=== PATIENT | male | born 1955 | race Caucasian/White ===

== ENCOUNTER 2020-01-07 15:12 | IRF | payer OTHER, BC, SELFPAY ==
--- NOTE | 2020-01-07 15:37 | PC.NURSE ---
This patient, Jose Mendoza, was admitted to [facility] Room 226-01. Patient/family oriented to hospital policies and general routines including ID bracelet, bed and alarms, visiting hours, pain management, procedures, bathroom and other care routines, personal items, smoking policy, room service/diet, and visiting hours. Valuables list has been completed. Information on how to activate the Rapid Response Team has been discussed. Patient/Family are encouraged to report perceived risks to care and to ask questions if they do not understand what they are told or what they should do.
[2020-01-07 16:00] VITALS: BP 111/86; PULSE 81; RESP 20; TEMP 37.1; O2SAT 99; BMI 25.7
[2020-01-07 17:18] LABS: Glucose Point of Care 175 (65-105)
[2020-01-07] MEDS: CYCLOBENZAPRINE HCL 5 MG TABLET PO (17:58)
[2020-01-07] MEDS: SENNA/DOCUSATE SODIUM TABLET 2 TAB BY MOUTH (18:14)
[2020-01-07] MEDS: LIPASE/AMYLASE/PROTEASE 12,000 UNITS CAP 2 CAP PO (18:15)
[2020-01-07] MEDS: INSULIN ASPART (*BKC) 100 UNITS/ML 8 UNITS SUB-Q (18:16)
[2020-01-07] MEDS: ATORVASTATIN 10 MG TABLET PO (21:00)
[2020-01-07] MEDS: INSULIN GLARGINE (*BKC) 100 UNITS/ML 16 UNITS SUB-Q (21:00)
[2020-01-07] MEDS: BACITRACIN/POLYMYXIN B OINT 15 GM TUBE 1 APPLIC TOPICAL (21:27)
[2020-01-07 22:00] VITALS: BP 133/70; PULSE 84; RESP 18; TEMP 37.8; O2SAT 98
[2020-01-07 22:44] LABS: Glucose Point of Care 153 (65-105)
[2020-01-08] MEDS: GABAPENTIN 100 MG CAPSULE 200 MG BY MOUTH ×4 (00:02→20:37)
[2020-01-08 05:20] LABS: Basophils Absolute Auto 0.1 K/mm3 (0.0-0.1); Basophils Percent Auto 0.5 % (0.2-1.2); Eosinophils Absolute Auto 0.3 K/mm3 (0-0.3); Eosinophils Percent Auto 2.8 % (0-4.4); Hematocrit 31.8 % (42.0-52.0); Hemoglobin 10.6 g/dL (14.0-18.0); Lymphocytes Absolute Auto 1.55 K/mm3 (0.9-3.2); Lymphocytes Percent Auto 15.6 % (18.3-44.2); Mean Corpuscular HGB Conc 33.3 g/dl (32-36); Mean Corpuscular Volume 96.1 fl (80-100); Mean Platelet Volume 9.9 fl (7.4-10.4); Monocytes Percent Auto 10.4 % (2.6-8.5); Neutrophils Absolute Auto 6.9 K/mm3 (1.3-6.7); Neutrophils Percent Auto 69.7 % (45.5-73.1); Nucleated Red Blood Cells Perc 0.2 % (0.0-0.2); Platelet Count Result 552 k/mm3 (150-375); Red Blood Count 3.31 M/mm3 (4.6-6.20); Red Cell Distribution Width 22.5 % (11.5-14.5)
[2020-01-08 05:44] LABS: Blood Urea Nitrogen 19 mg/dL (9-20); Calcium 8.8 mg/dL (8.4-10.2); Carbon Dioxide 28 mmol/L (22-30); Chloride 101 mmol/L (98-107); Estimated CRCL calculation 60 ml/min; Estimated Glomerular Filt Rate > 60; Glucose 190 mg/dL (75-110); Potassium 4.5 mmol/L (3.4-5.0); Sodium 131 mmol/L (137-145)
[2020-01-08 06:00] VITALS: BP 128/68; PULSE 80; RESP 16; TEMP 36.8; O2SAT 94
[2020-01-08 06:32] LABS: Glucose Point of Care 227 (65-105)
[2020-01-08 08:00] VITALS: PULSE 80; RESP 16; O2SAT 94
[2020-01-08] MEDS: BACITRACIN/POLYMYXIN B OINT 15 GM TUBE 1 APPLIC TOPICAL ×2 (08:23→20:38)
[2020-01-08] MEDS: CHOLECALCIFEROL 1,000 UNIT TABLET 2000 UNITS PO (08:23)
[2020-01-08] MEDS: LIPASE/AMYLASE/PROTEASE 12,000 UNITS CAP 2 CAP PO ×3 (08:23→18:42)
[2020-01-08] MEDS: TAMSULOSIN HCL 0.4 MG CAPSULE PO (08:24)
[2020-01-08] MEDS: SENNA/DOCUSATE SODIUM TABLET 2 TAB BY MOUTH ×2 (08:24→18:42)
[2020-01-08] MEDS: polyethylene glycoL 3350 17 GM POWD.PACK PO (08:24)
[2020-01-08] MEDS: ENOXAPARIN 40 MG/0.4 ML SYRINGE SUB-Q (08:24)
[2020-01-08] MEDS: INSULIN ASPART (*BKC) 100 UNITS/ML SUB-Q ×3 (08:26→18:44)
[2020-01-08] MEDS: INSULIN ASPART (*BKC) 100 UNITS/ML 8 UNITS SUB-Q ×3 (08:26→18:44)
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
[2020-01-08 12:12] LABS: Glucose Point of Care 257 (65-105)
[2020-01-08 12:46] VITALS: BMI 25.7
[2020-01-08 14:00] VITALS: BP 124/68; PULSE 87; RESP 20; TEMP 37.1; O2SAT 100
--- NOTE | 2020-01-08 14:11 | PC.NURSE ---
Lidoderm patches not available this a.m. to put on patient. Dr. Carroll is aware.
[2020-01-08 16:49] LABS: Glucose Point of Care 241 (65-105)
[2020-01-08] MEDS: ATORVASTATIN 10 MG TABLET PO (20:37)
[2020-01-08] MEDS: INSULIN GLARGINE (*BKC) 100 UNITS/ML 16 UNITS SUB-Q (20:54)
[2020-01-08 22:00] VITALS: BP 122/59; PULSE 87; RESP 16; TEMP 37; O2SAT 95
[2020-01-08 23:18] LABS: Glucose Point of Care 256 (65-105)
[2020-01-09 06:00] VITALS: BP 127/65; PULSE 76; RESP 18; TEMP 37.2; O2SAT 96
[2020-01-09] MEDS: GABAPENTIN 100 MG CAPSULE 200 MG BY MOUTH ×3 (06:03→22:00)
[2020-01-09 06:43] LABS: Glucose Point of Care 276 (65-105)
--- NOTE | 2020-01-09 07:56 | PCPTNOTE ---
Jose Mendoza was evaluated for a platform wheeled walker on 01/09/2020 by this physical therapist. The platform wheeled walker will resolve patient's mobility limitations and will be used for ADL's within the home. The patient can safely use the platform wheeled walker. ?The platform wheeled walker will resolve the patient?s mobility deficits, including independent transfers/gait and ADL's. Zandra Reyes PT
[2020-01-09] MEDS: INSULIN ASPART (*BKC) 100 UNITS/ML SUB-Q ×3 (09:35→17:52)
[2020-01-09] MEDS: INSULIN ASPART (*BKC) 100 UNITS/ML 8 UNITS SUB-Q ×3 (09:35→17:52)
[2020-01-09] MEDS: LIPASE/AMYLASE/PROTEASE 12,000 UNITS CAP 2 CAP PO ×3 (09:36→17:51)
[2020-01-09] MEDS: LIDOCAINE 5% PATCH 2 PATCH TOPICAL (09:37)
[2020-01-09] MEDS: CHOLECALCIFEROL 1,000 UNIT TABLET 2000 UNITS PO (09:37)
[2020-01-09] MEDS: ENOXAPARIN 40 MG/0.4 ML SYRINGE SUB-Q (09:37)
[2020-01-09] MEDS: SENNA/DOCUSATE SODIUM TABLET 2 TAB BY MOUTH ×2 (09:37→17:51)
[2020-01-09] MEDS: TAMSULOSIN HCL 0.4 MG CAPSULE PO (09:37)
[2020-01-09] MEDS: polyethylene glycoL 3350 17 GM POWD.PACK PO (09:37)
[2020-01-09] MEDS: BACITRACIN/POLYMYXIN B OINT 15 GM TUBE 1 APPLIC TOPICAL ×2 (09:37→22:00)
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
[2020-01-09 12:03] LABS: Glucose Point of Care 367 (65-105)
[2020-01-09] MEDS: CYCLOBENZAPRINE HCL 5 MG TABLET PO (13:02)
[2020-01-09 14:00] VITALS: BP 140/73; PULSE 86; RESP 20; TEMP 36.5; O2SAT 97
--- NOTE | 2020-01-09 16:23 | PCCCNOTE ---
On 01/09/20, the student, [Faustino Hinson ], provided care and completed [facility] documentation on this patient. I have reviewed the student's documentation and agree with the findings.
[2020-01-09 17:29] LABS: Glucose Point of Care 206 (65-105)
[2020-01-09] MEDS: INSULIN GLARGINE (*BKC) 100 UNITS/ML 16 UNITS SUB-Q (20:35)
[2020-01-09] MEDS: ATORVASTATIN 5 MG TABLET 10 MG PO (20:35)
[2020-01-09 21:20] LABS: Glucose Point of Care 222 (65-105)
[2020-01-09 22:00] VITALS: BP 122/60; PULSE 85; RESP 18; TEMP 37.4; O2SAT 95
[2020-01-10 06:00] VITALS: BP 128/63; PULSE 77; RESP 16; TEMP 37.3; O2SAT 96
[2020-01-10] MEDS: GABAPENTIN 100 MG CAPSULE 200 MG BY MOUTH ×3 (06:17→21:37)
[2020-01-10 06:37] LABS: Glucose Point of Care 264 (65-105)
[2020-01-10] MEDS: INSULIN ASPART (*BKC) 100 UNITS/ML SUB-Q ×3 (10:01→17:23)
[2020-01-10] MEDS: INSULIN ASPART (*BKC) 100 UNITS/ML 8 UNITS SUB-Q (10:01)
[2020-01-10] MEDS: SENNA/DOCUSATE SODIUM TABLET 2 TAB BY MOUTH ×2 (10:02→17:21)
[2020-01-10] MEDS: LIPASE/AMYLASE/PROTEASE 12,000 UNITS CAP 2 CAP PO ×3 (10:02→17:24)
[2020-01-10] MEDS: CHOLECALCIFEROL 1,000 UNIT TABLET 2000 UNITS PO (10:02)
[2020-01-10] MEDS: BACITRACIN/POLYMYXIN B OINT 15 GM TUBE 1 APPLIC TOPICAL ×2 (10:02→21:39)
[2020-01-10] MEDS: ENOXAPARIN 40 MG/0.4 ML SYRINGE SUB-Q (10:02)
[2020-01-10] MEDS: LIDOCAINE 5% PATCH 2 PATCH TOPICAL (10:03)
[2020-01-10] MEDS: polyethylene glycoL 3350 17 GM POWD.PACK PO (10:03)
[2020-01-10] MEDS: TAMSULOSIN HCL 0.4 MG CAPSULE PO (10:03)
[2020-01-10 12:29] LABS: Glucose Point of Care 222 (65-105)
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
[2020-01-10] MEDS: CYCLOBENZAPRINE HCL 5 MG TABLET PO (13:48)
[2020-01-10 14:00] VITALS: BP 131/60; PULSE 84; RESP 19; TEMP 36.8; O2SAT 97
[2020-01-10 17:11] LABS: Glucose Point of Care 287 (65-105)
[2020-01-10] MEDS: INSULIN ASPART (*BKC) 100 UNITS/ML 10 UNITS SUB-Q (17:22)
[2020-01-10] MEDS: ATORVASTATIN 10 MG TABLET PO (21:38)
[2020-01-10] MEDS: INSULIN GLARGINE (*BKC) 100 UNITS/ML 16 UNITS SUB-Q (21:43)
[2020-01-10 22:00] VITALS: BP 131/74; PULSE 94; RESP 18; TEMP 37; O2SAT 97
[2020-01-10 22:10] LABS: Glucose Point of Care 245 (65-105)
[2020-01-11 06:00] VITALS: BP 130/72; PULSE 77; RESP 18; TEMP 36.8; O2SAT 95
[2020-01-11] MEDS: GABAPENTIN 100 MG CAPSULE 200 MG BY MOUTH ×3 (06:07→22:03)
[2020-01-11 07:06] LABS: Glucose Point of Care 271 (65-105)
[2020-01-11 09:20] VITALS: PULSE 78; RESP 18; O2SAT 100
[2020-01-11] MEDS: CYCLOBENZAPRINE HCL 5 MG TABLET PO ×2 (09:25→13:25)
[2020-01-11] MEDS: SENNA/DOCUSATE SODIUM TABLET 2 TAB BY MOUTH ×2 (09:27→17:18)
[2020-01-11] MEDS: ENOXAPARIN 40 MG/0.4 ML SYRINGE SUB-Q (09:27)
[2020-01-11] MEDS: LIPASE/AMYLASE/PROTEASE 12,000 UNITS CAP 2 CAP PO ×3 (09:27→17:18)
[2020-01-11] MEDS: BACITRACIN/POLYMYXIN B OINT 15 GM TUBE 1 APPLIC TOPICAL ×2 (09:28→22:01)
[2020-01-11] MEDS: LIDOCAINE 5% PATCH 2 PATCH TOPICAL ×2 (09:28→22:02)
[2020-01-11] MEDS: CHOLECALCIFEROL 1,000 UNIT TABLET 2000 UNITS PO (09:28)
[2020-01-11] MEDS: polyethylene glycoL 3350 17 GM POWD.PACK PO (09:28)
[2020-01-11] MEDS: TAMSULOSIN HCL 0.4 MG CAPSULE PO (09:29)
[2020-01-11] MEDS: INSULIN ASPART (*BKC) 100 UNITS/ML SUB-Q ×2 (09:30→13:26)
[2020-01-11] MEDS: INSULIN ASPART (*BKC) 100 UNITS/ML 10 UNITS SUB-Q ×3 (09:31→17:19)
[2020-01-11 12:28] LABS: Glucose Point of Care 269 (65-105)
[2020-01-11 14:00] VITALS: BP 110/61; PULSE 80; RESP 20; TEMP 36.7; O2SAT 100
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
[2020-01-11 17:09] LABS: Glucose Point of Care 144 (65-105)
[2020-01-11 19:58] VITALS: BP 117/67; PULSE 84; RESP 16; TEMP 37.2; O2SAT 96
[2020-01-11 21:17] LABS: Glucose Point of Care 103 (65-105)
[2020-01-11] MEDS: ATORVASTATIN 10 MG TABLET PO (22:01)
[2020-01-12 05:54] VITALS: BP 140/72; PULSE 89; RESP 20; TEMP 36.8; O2SAT 94
[2020-01-12] MEDS: CYCLOBENZAPRINE HCL 5 MG TABLET PO ×2 (06:00→17:45)
[2020-01-12] MEDS: GABAPENTIN 100 MG CAPSULE 200 MG BY MOUTH ×3 (06:00→21:03)
[2020-01-12 07:46] LABS: Glucose Point of Care 354 (65-105)
[2020-01-12] MEDS: SENNA/DOCUSATE SODIUM TABLET 2 TAB BY MOUTH ×2 (09:32→17:43)
[2020-01-12] MEDS: ENOXAPARIN 40 MG/0.4 ML SYRINGE SUB-Q (09:32)
[2020-01-12] MEDS: TAMSULOSIN HCL 0.4 MG CAPSULE PO (09:32)
[2020-01-12] MEDS: polyethylene glycoL 3350 17 GM POWD.PACK PO (09:33)
[2020-01-12] MEDS: LIPASE/AMYLASE/PROTEASE 12,000 UNITS CAP 2 CAP PO ×3 (09:33→17:43)
[2020-01-12] MEDS: CHOLECALCIFEROL 1,000 UNIT TABLET 2000 UNITS PO (09:33)
[2020-01-12] MEDS: INSULIN ASPART (*BKC) 100 UNITS/ML SUB-Q ×2 (09:37→16:32)
[2020-01-12] MEDS: INSULIN ASPART (*BKC) 100 UNITS/ML 10 UNITS SUB-Q (09:43)
[2020-01-12 14:00] VITALS: BP 134/63; PULSE 83; RESP 18; TEMP 37.1; O2SAT 94
[2020-01-12] MEDS: BACITRACIN/POLYMYXIN B OINT 15 GM TUBE 1 APPLIC TOPICAL ×2 (15:04→21:05)
[2020-01-12 16:24] LABS: Glucose Point of Care > 500 (65-105)
[2020-01-12] MEDS: INSULIN ASPART (*BKC) 100 UNITS/ML 15 UNITS SUB-Q (16:31)
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
[2020-01-12] MEDS: INSULIN GLARGINE (*BKC) 100 UNITS/ML 16 UNITS SUB-Q (21:04)
[2020-01-12] MEDS: ATORVASTATIN 10 MG TABLET PO (21:04)
[2020-01-12 21:27] LABS: Glucose Point of Care 327 (65-105)
[2020-01-12 21:56] VITALS: BP 116/61; PULSE 80; RESP 18; TEMP 36.3; O2SAT 97
[2020-01-13] MEDS: GABAPENTIN 100 MG CAPSULE 200 MG BY MOUTH ×3 (05:27→20:31)
[2020-01-13 06:00] VITALS: BP 113/62; PULSE 76; RESP 18; TEMP 35.5; O2SAT 95
[2020-01-13 07:01] LABS: Glucose Point of Care 327 (65-105)
[2020-01-13] MEDS: INSULIN ASPART (*BKC) 100 UNITS/ML SUB-Q ×2 (09:12→13:19)
[2020-01-13] MEDS: INSULIN ASPART (*BKC) 100 UNITS/ML 15 UNITS SUB-Q ×2 (09:13→13:19)
[2020-01-13] MEDS: CHOLECALCIFEROL 1,000 UNIT TABLET 2000 UNITS PO (09:13)
[2020-01-13] MEDS: LIPASE/AMYLASE/PROTEASE 12,000 UNITS CAP 2 CAP PO ×3 (09:13→17:06)
[2020-01-13] MEDS: BACITRACIN/POLYMYXIN B OINT 15 GM TUBE 1 APPLIC TOPICAL ×2 (09:13→20:31)
[2020-01-13] MEDS: ENOXAPARIN 40 MG/0.4 ML SYRINGE SUB-Q (09:14)
[2020-01-13] MEDS: SENNA/DOCUSATE SODIUM TABLET 2 TAB BY MOUTH ×2 (09:14→17:06)
[2020-01-13] MEDS: LIDOCAINE 5% PATCH 2 PATCH TOPICAL (09:14)
[2020-01-13] MEDS: TAMSULOSIN HCL 0.4 MG CAPSULE PO (09:15)
[2020-01-13] MEDS: CYCLOBENZAPRINE HCL 5 MG TABLET PO (11:29)
[2020-01-13] MEDS: SILVERGEL (ELTA) 45 ML 1 APPLIC TOPICAL (11:29)
[2020-01-13 11:55] LABS: Glucose Point of Care 208 (65-105)
[2020-01-13 14:00] VITALS: BP 116/57; PULSE 87; RESP 20; TEMP 37.1; O2SAT 97
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
--- NOTE | 2020-01-13 16:54 | PC.NURSE ---
Per Dr. Yancey, hold Novolog tonight/BS=75 and has had a total of 36 units today due to a 327 this morning and 202 at noon. Will receive Lantus at bedtime.
[2020-01-13 17:31] LABS: Glucose Point of Care 75 (65-105)
[2020-01-13] MEDS: ATORVASTATIN 10 MG TABLET PO (20:31)
[2020-01-13] MEDS: INSULIN GLARGINE (*BKC) 100 UNITS/ML 16 UNITS SUB-Q (20:49)
[2020-01-13 22:00] VITALS: BP 114/73; PULSE 78; RESP 20; TEMP 36.6; O2SAT 96
[2020-01-14 01:11] LABS: Glucose Point of Care 311 (65-105)
[2020-01-14] MEDS: GABAPENTIN 100 MG CAPSULE 200 MG BY MOUTH ×3 (05:24→20:16)
[2020-01-14 06:00] VITALS: BP 112/73; PULSE 84; RESP 18; TEMP 36.8; O2SAT 96
[2020-01-14 06:21] LABS: Glucose Point of Care 234 (65-105)
[2020-01-14 08:00] VITALS: PULSE 84; RESP 18; O2SAT 96
[2020-01-14] MEDS: SENNA/DOCUSATE SODIUM TABLET 2 TAB BY MOUTH ×2 (08:22→17:37)
[2020-01-14] MEDS: TAMSULOSIN HCL 0.4 MG CAPSULE PO (08:22)
[2020-01-14] MEDS: LIPASE/AMYLASE/PROTEASE 12,000 UNITS CAP 2 CAP PO ×3 (08:22→17:38)
[2020-01-14] MEDS: CHOLECALCIFEROL 1,000 UNIT TABLET 2000 UNITS PO (08:22)
[2020-01-14] MEDS: BACITRACIN/POLYMYXIN B OINT 15 GM TUBE 1 APPLIC TOPICAL ×2 (08:23→20:17)
[2020-01-14] MEDS: LIDOCAINE 5% PATCH 2 PATCH TOPICAL (08:23)
[2020-01-14] MEDS: ENOXAPARIN 40 MG/0.4 ML SYRINGE SUB-Q (08:23)
[2020-01-14] MEDS: SILVERGEL (ELTA) 45 ML 1 APPLIC TOPICAL (08:24)
[2020-01-14] MEDS: INSULIN ASPART (*BKC) 100 UNITS/ML SUB-Q (10:49)
[2020-01-14] MEDS: INSULIN ASPART (*BKC) 100 UNITS/ML 15 UNITS SUB-Q ×3 (10:49→17:00)
[2020-01-14 12:13] LABS: Glucose Point of Care 142 (65-105)
[2020-01-14 14:00] VITALS: BP 126/63; PULSE 84; RESP 20; TEMP 37.2; O2SAT 100
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
[2020-01-14 16:50] LABS: Glucose Point of Care 109 (65-105)
[2020-01-14] MEDS: ATORVASTATIN 10 MG TABLET PO (20:16)
[2020-01-14] MEDS: INSULIN GLARGINE (*BKC) 100 UNITS/ML 16 UNITS SUB-Q (20:17)
[2020-01-14 21:00] LABS: Glucose Point of Care 235 (65-105)
[2020-01-14 22:00] VITALS: BP 122/60; PULSE 84; RESP 17; TEMP 37.2; O2SAT 95
[2020-01-15 04:49] LABS: Basophils Absolute Auto 0.1 K/mm3 (0.0-0.1); Eosinophils Absolute Auto 0.2 K/mm3 (0-0.3); Eosinophils Percent Auto 3.9 % (0-4.4); Hematocrit 33.8 % (42.0-52.0); Hemoglobin 11.1 g/dL (14.0-18.0); Immature Granulocyte Absolute 0.03 K/mm3 (0.00-0.031); Immature Granulocyte Percent A 0.5 % (0-0.5); Lymphocytes Absolute Auto 1.36 K/mm3 (0.9-3.2); Lymphocytes Percent Auto 22.2 % (18.3-44.2); Mean Corpuscular HGB Conc 32.8 g/dl (32-36); Mean Corpuscular Hemoglobin 32.6 pg (26-34); Mean Corpuscular Volume 99.1 fl (80-100); Mean Platelet Volume 9.4 fl (7.4-10.4); Monocytes Absolute Auto 0.9 K/mm3 (0.1-0.6); Monocytes Percent Auto 15.4 % (2.6-8.5); Neutrophils Absolute Auto 3.5 K/mm3 (1.3-6.7); Platelet Count Result 563 k/mm3 (150-375); Red Blood Count 3.41 M/mm3 (4.6-6.20); Red Cell Distribution Width 20.5 % (11.5-14.5); White Blood Count 6.1 K/mm3 (4.5-10.0)
[2020-01-15 05:03] LABS: Blood Urea Nitrogen 19 mg/dL (9-20); Calcium 8.6 mg/dL (8.4-10.2); Carbon Dioxide 28 mmol/L (22-30); Chloride 97 mmol/L (98-107); Estimated CRCL calculation 55 ml/min; Estimated Glomerular Filt Rate > 60; Glucose 240 mg/dL (75-110); Potassium 4.5 mmol/L (3.4-5.0); Sodium 131 mmol/L (137-145)
[2020-01-15] MEDS: GABAPENTIN 100 MG CAPSULE 200 MG BY MOUTH ×2 (05:20→12:34)
[2020-01-15 06:00] VITALS: BP 116/64; PULSE 72; RESP 18; TEMP 36.6; O2SAT 94
[2020-01-15 06:49] LABS: Glucose Point of Care 215 (65-105)
[2020-01-15 08:00] VITALS: PULSE 72; RESP 18; O2SAT 94
[2020-01-15] MEDS: LIPASE/AMYLASE/PROTEASE 12,000 UNITS CAP 2 CAP PO ×2 (08:49→12:34)
[2020-01-15] MEDS: BACITRACIN/POLYMYXIN B OINT 15 GM TUBE 1 APPLIC TOPICAL (08:50)
[2020-01-15] MEDS: ENOXAPARIN 40 MG/0.4 ML SYRINGE SUB-Q (08:50)
[2020-01-15] MEDS: CHOLECALCIFEROL 1,000 UNIT TABLET 2000 UNITS PO (08:50)
[2020-01-15] MEDS: TAMSULOSIN HCL 0.4 MG CAPSULE PO (08:50)
[2020-01-15] MEDS: SILVERGEL (ELTA) 45 ML 1 APPLIC TOPICAL (08:50)
[2020-01-15] MEDS: SENNA/DOCUSATE SODIUM TABLET 2 TAB BY MOUTH (08:51)
[2020-01-15] MEDS: INSULIN ASPART (*BKC) 100 UNITS/ML 15 UNITS SUB-Q ×2 (08:52→12:37)
[2020-01-15] MEDS: INSULIN ASPART (*BKC) 100 UNITS/ML SUB-Q ×2 (08:52→12:37)
[2020-01-15] MEDS: LIDOCAINE 5% PATCH 2 PATCH TOPICAL (08:53)
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
[2020-01-15 12:11] LABS: Glucose Point of Care 304 (65-105)
--- NOTE | 2020-01-15 19:53 | PC.NURSE ---
[facility] in [place] called and stated they did not receive prescriptions Dr. Carroll sent to them today for patient discharge. Per Dr. Carroll ok, scripts called into [facility] in [place].
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
== END 2020-01-15 13:45 | disposition home health service (06) | DRG 560 ==
PROVIDERS: Admitting Provider Psychiatry & Neurology Neurology; PCP Family Medicine Sports Medicine; Visit Provider Psychiatry & Neurology Neurology
DX: S32.19XD Other fracture of sacrum, subsequent encounter for fracture with routine healing (principal); J93.83 Other pneumothorax; S32.591D Other specified fracture of right pubis, subsequent encounter for fracture with routine healing; S22.42XD Multiple fractures of ribs, left side, subsequent encounter for fracture with routine healing; S32.392D Other fracture of left ilium, subsequent encounter for fracture with routine healing; S32.592D Other specified fracture of left pubis, subsequent encounter for fracture with routine healing; S32.058D Other fracture of fifth lumbar vertebra, subsequent encounter for fracture with routine healing; S62.514D Nondisplaced fracture of proximal phalanx of right thumb, subsequent encounter for fracture with routine healing; S31.821D Laceration without foreign body of left buttock, subsequent encounter; E10.65 Type 1 diabetes mellitus with hyperglycemia; K59.00 Constipation, unspecified; Z79.4 Long term (current) use of insulin; Z87.891 Personal history of nicotine dependence; V29.9XXD Motorcycle rider (driver) (passenger) injured in unspecified traffic accident, subsequent encounter
CPT/HCPCS: 36415; 80048; 85025; 97110; 97116; 97162; 97166; 97530; 97535; A9270; J1650; J1815

== ENCOUNTER 2020-04-18 02:48 | Emergency (ER) | payer BC, MEDICARE, SELFPAY ==
--- NOTE | ~2020-04-18 | CT_ITS ---
EXAMINATION: CT abdomen pelvis w con EXAM DATE: 04/18/2020 04:27 INDICATION: Low abdominal pain. TECHNIQUE: Spiral CT of the abdomen and pelvis was performed following intravenous injection of 100 m L Omnipaque 350. Axial, coronal and sagittal images were reviewed. The dose-length product (DLP) fo r this examination was 375.47 mGy-cm. The exposure was tailored according to patient size (auto mA e xposure control), and iterative reconstruction (ASIR) was used as additional dose reduction technique . Comparison is made to prior examination from 12/23/2018. FINDINGS: The liver, spleen, adrenal glands are unremarkable. Some chronic pancreatic head calcificat ions, chronic pancreatitis. There are cholecystectomy clips. Portal and splenic veins are patent. K idneys enhance symmetrically. There is no hydronephrosis. The prostate is unremarkable. The bladd er is distended but otherwise unremarkable. There is no retroperitoneal or pelvic lymphadenopathy. There is moderate scattered arteriosclerotic disease. The appendix is normal. The stomach and small bowel are unremarkable. There is moderate amount of c olonic stool. No free intraperitoneal gas. The heart is normal in size. There are no pericardial or pleural effusions. There is rounded left lower lobe opacity consistent with round atelectasis, a nd a small left pleural effusion. Both of these findings are new compared to previous examination. P elvic hardware bridging fractures. Incomplete osseous union of the inferior rami fractures. IMPRESSION: 1. No acute intra-abdominal findings. 2. Moderate colonic stool. 3. Chronic pancreatitis. Reviewed, dictated and finalized at location [facility].
[2020-04-18 02:53] VITALS: BP 148/65; PULSE 80; RESP 20; TEMP 36.1; O2SAT 97
--- NOTE | 2020-04-18 03:18 | ECG_ITS ---
Measurements Intervals [place] Rate: 62 P: 51 RI: 178 QRS: 34 QRSD: 95 T: 50 QT: 424 QTc: 431 Interpretive Statements SINUS RHYTHM WITH MARKED SINUS ARRHYTHMIA BASELINE WANDER- AVL, AVF, V1-V3, V5 BORDERLINE ECG Electronically Signed On 04-18-2020 7:32:42 CDT by Horacio Jacobo D.O.
[2020-04-18 03:30] LABS: Basophils Absolute Auto 0.1 K/mm3 (0.0-0.1); Basophils Percent Auto 0.6 % (0.2-1.2); Eosinophils Absolute Auto 0.2 K/mm3 (0-0.3); Eosinophils Percent Auto 1.7 % (0-4.4); Hematocrit 46.1 % (42.0-52.0); Hemoglobin 15.5 g/dL (14.0-18.0); Immature Granulocyte Absolute 0.04 K/mm3 (0.00-0.031); Immature Granulocyte Percent A 0.3 % (0-0.5); Lymphocytes Absolute Auto 2.55 K/mm3 (0.9-3.2); Lymphocytes Percent Auto 19.7 % (18.3-44.2); Mean Corpuscular HGB Conc 33.6 g/dl (32-36); Mean Corpuscular Hemoglobin 32.6 pg (26-34); Mean Corpuscular Volume 97.1 fl (80-100); Mean Platelet Volume 11.1 fl (7.4-10.4); Monocytes Absolute Auto 0.8 K/mm3 (0.1-0.6); Monocytes Percent Auto 6.2 % (2.6-8.5); Neutrophils Absolute Auto 9.3 K/mm3 (1.3-6.7); Neutrophils Percent Auto 71.5 % (45.5-73.1); Platelet Count Result 223 k/mm3 (150-375); Red Blood Count 4.75 M/mm3 (4.6-6.20)
--- NOTE | 2020-04-18 03:32 | ED.ABDPAIN ---
HPI - Abdominal Pain General Chief Complaint: Abdominal Pain Stated Complaint: abd pain Time Seen by Provider: 04/18/20 02:58 Source: patient Mode of arrival: ambulatory Limitations: no limitations History of Present Illness HPI narrative: This patient is a 65 year old male who presents for sudden onset epigastric abdominal pain. Patient states he woke up at midnight with severe pain that radiates to his back and entire abdomen. He has associated nausea and vomiting with this pain. He has not trying any medication or treatment prior to arrival. He reports having a normal bowel movement today. He reports he has had similar pain in the past and he was diagnosed with colitis and diverticulitis. Onset (ago): hour(s) Pain Consistency: constant Location: diffuse Exacerbating factors: nothing Relieving factors: nothing Related Data Home Medications Medication Instructions Recorded Confirmed acetaminophen 500 mg PO Q6H PRN 01/07/20 01/07/20 atorvastatin [Lipitor] 10 mg PO HS 01/07/20 01/07/20 Allergies Allergy/AdvReac Type Severity Reaction Status Date / Time hydrocodone Allergy Intermediate Itching Verified 12/23/18 08:56 Cephalosporins Allergy Mild Verified 10/01/14 13:54 TAPE Allergy Mild Uncoded 11/25/07 10:37 Review of Systems Review of Systems: All systems reviewed & are unremarkable except as noted in HPI and below Constitutional: Constitutional: Denies chills and Denies fever(s) Cardiovascular: Cardiovascular: Denies chest pain Respiratory: Respiratory: Denies dyspnea Gastrointestinal: Gastrointestinal: Reports abdominal pain, Reports nausea and Reports vomiting PMFSH Past Medical History Medical History (Updated 04/18/20 @ 05:19 by Ellyn Chen MD) Heart valve disease Pelvic fracture Type 1 diabetes mellitus Social History Social History Smoking packs per day: 1 Smoking cigarettes per day: 20.0 Years smoked: 50 Smoking pack-years: 50.00 Smoking status: Former smoker Tobacco type: cigarettes Smoking end date: 07/17/17 Alcohol intake: current Drinks per week: 14 Substance use: current Substance use type: marijuana Other substance usage details: medical marijuana card Gender identity (if verbalized by the patient): Male Spiritual care concerns: No Exam Const: General: alert Orientation/consciousness: patient oriented x3 Other: patient intermittent squeezing in pain Eyes: EOM: EOMs intact bilaterally Neck: Neck: no lymphadenopathy Resp: Effort & Inspection: normal respiratory effort and no retractions Auscultation: clear to auscultation bilaterally Cardio: Rate: regular rate Rhythm: regular rhythm Heart sounds: no murmurs GI: GI Palp: Yes Soft to palpation, Yes Tenderness to palpation present (GI), No Guarding due to palpation present (GI), No Rigid due to palpation and No Hernia present Skin: General skin exam: normal color Rashes: no rashes Neuro: General: patient oriented x3 and moves all extremities Course Reevaluation(s) Reevaluation #1: Patient states his pain has completely resolved. His labs are unremarkable other than leukocytosis. Date: 04/18/20 Time: 05:16 Vital Signs Vital signs: Vital Signs Temperature 97.0 F L 04/18/20 02:53 Pulse Rate 80 04/18/20 02:53 Respiratory Rate 20 04/18/20 02:53 Blood Pressure 148/65 H 04/18/20 02:53 Pulse Oximetry 97 04/18/20 02:53 Temperature 97.0 F L 04/18/20 02:53 Pulse Rate 56 L 04/18/20 05:38 Respiratory Rate 13 04/18/20 05:38 Blood Pressure 104/68 04/18/20 05:38 Pulse Oximetry 97 04/18/20 05:38 MDM - Abdominal Pain Lab Data Attestation: I reviewed the patient's lab results. Result diagrams: 04/18/20 03:24 04/18/20 03:24 Labs: Lab Results 04/18/20 04/18/20 04/18/20 Range/Units 03:24 03:24 03:34 WBC 13.0 H (4.5-10.0) K/mm3 RBC 4.75 (4.6-6.20) M/
[2020-04-18] MEDS: ONDANSETRON INJ 4 MG/2 ML VIAL IV PUSH (03:34)
[2020-04-18] MEDS: HYDROmorphone HCL INJ (*CRX) 1 MG/ML SYR IV PUSH (03:34)
[2020-04-18 03:45] LABS: Alanine Aminotransferase 21 U/L (4-50); Albumin Level 4.5 g/dL (3.5-5.1); Alkaline Phosphatase 189 U/L (38-126); Anion Gap 12 mmol/L (8-16); Aspartate Amino Transferase 34 U/L (17-59); Bilirubin,Total 0.7 mg/dL (0.2-1.3); Blood Urea Nitrogen 14 mg/dL (9-20); Calcium 9.8 mg/dL (8.4-10.2); Carbon Dioxide 29 mmol/L (22-30); Chloride 99 mmol/L (98-107); Estimated CRCL calculation 55 ml/min; Estimated Glomerular Filt Rate > 60; Glucose 150 mg/dL (75-110); Potassium 3.9 mmol/L (3.4-5.0); Sodium 140 mmol/L (137-145)
[2020-04-18 03:52] LABS: Lipase < 10 U/L (23-300)
[2020-04-18 03:52] LABS: Lactic Acid Reflex 1.9 mmol/L (0.7-2.1)
--- NOTE | 2020-04-18 04:15 | PC.NURSE ---
Patient taken to CT.
[2020-04-18 04:49] LABS: Add Urine Microscopic? YES; Appearance Urine Clear (Clear); Bilirubin Urine Negative (Negative); Blood Urine Negative (Negative); Color Urine Yellow (Yellow); Glucose Urine UA Negative (Negative); Ketones Urine Negative (Negative); Leukocyte Esterase Ur Negative LEU/UL (Negative); Mucus Urine Rare /lpf; Nitrate Urine Negative (Negative); Protein Urine 1+ mg/dL (Negative); RBC Urine 0-2 /hpf (0-2); Specific Grav Ur 1.015 (1.001-1.035); Urobilinogen Urine Negative mg/dL (<2.0); WBC Urine 0-3 /hpf
[2020-04-18 04:59] VITALS: BP 118/75; PULSE 74; RESP 14; O2SAT 97
[2020-04-18 05:38] VITALS: BP 104/68; PULSE 56; RESP 13; O2SAT 97
== END 2020-04-18 05:40 | disposition home or self-care (01) ==
PROVIDERS: Emergency Provider General Practice; PCP Family Medicine Sports Medicine
DX: R10.13 Epigastric pain (principal); E10.9 Type 1 diabetes mellitus without complications; I38 Endocarditis, valve unspecified; Z87.891 Personal history of nicotine dependence; R94.31 Abnormal electrocardiogram [ECG] [EKG]; K86.1 Other chronic pancreatitis
CPT/HCPCS: 36415; 74177; 80053; 81001; 83605; 83690; 85025; 93005; 96374; 96375; 99284; J1170; J2405; Q9967

== ENCOUNTER 2020-12-17 17:48 | Emergency (ER) | payer BC, MEDICARE, SELFPAY ==
--- NOTE | ~2020-12-17 | CT_ITS ---
EXAMINATION: CTA chest abdomen pelvis DATE: 12/17/2020 21:11 INDICATION: Left abdominal pain. Chills, fever. TECHNIQUE: Computed tomography (CT) of the chest, abdomen, and pelvis was performed with 100 cc Omnip aque 350 intravenous contrast. Automated exposure control and iterative reconstruction technique were employed. Exam dose: 559.97 mGy-cm total exam DLP. COMPARISON: 05/05/2020 CT abdomen pelvis FINDINGS: CHEST CT: Status post sternotomy and aortic valve replacement. Ascending aorta measures up to 3.8 cm diameter. Normal heart size. Coronary artery calcification. 10.4 x 22.2 mm right paratracheal lymph node. No hilar or mediastinal mass lesion or lymphadenopathy is noted otherwise. No pericardial or pleural effusion. Mild discoid atelectasis or scarring in the lingula and left lowe r lobe, minimal dependent right lower lobe atelectasis. No pulmonary consolidation. Small sliding hiatal hernia. Old left rib fracture deformities. ABDOMEN/PELVIS CT: Status post cholecystectomy. No hepatic space-occupying mass lesion or bile duct dilatation. 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 Pancreatic head and neck prominent calcification distally with chronic pancreatitis. The pancreatic b mandeep and tail have apparently been resected. Normal morphology of the adrenal glands. No renal mass lesion. No urinary tract calculus or hydroureteronephrosis. The urinary bladder is unre markable. Moderate prostate enlargement and mild calcification. There is atherosclerotic calcification of the abdominal aorta but no aneurysm or dissection is eviden t. No intraperitoneal or retroperitoneal or pelvic mass lesion or adenopathy or ascites. Normal appendix. No bowel obstruction or intraperitoneal free air. Postoperative changes of the sacrum and pelvis; bilateral pelvic fracture.. IMPRESSION: Nonspecific 10.4 x 22 mm right paratracheal lymph node Small sliding hiatal hernia Status post cholecystectomy Resection of the spleen and pancreatic body and tail Chronic pancreatitis Postoperative change of the sacrum and pelvis for old bilateral pelvic fractures Reviewed, dictated and finalized at [facility]. Reviewed, dictated and finalized at location [facility]. IMPRESSION: Nonspecific 10.4 x 22 mm right paratracheal lymph node Small sliding hiatal hernia Status post cholecystectomy Resection of the spleen and pancreatic body and tail Chronic pancreatitis Postoperative change of the sacrum and pelvis for old bilateral pelvic fracture s
[2020-12-17 18:00] VITALS: BP 142/104; PULSE 103; RESP 20; TEMP 36.1; O2SAT 99
[2020-12-17 18:44] LABS: Basophils Percent Auto 0.2 % (0.2-1.2); Hematocrit 46.6 % (42.0-52.0); Hemoglobin 15.8 g/dL (14.0-18.0); Immature Granulocyte Absolute 0.03 K/mm3 (0.00-0.031); Immature Granulocyte Percent A 0.3 % (0-0.5); Lymphocytes Absolute Auto 0.75 K/mm3 (0.9-3.2); Mean Corpuscular HGB Conc 33.9 g/dl (32-36); Mean Corpuscular Hemoglobin 33.3 pg (26-34); Mean Corpuscular Volume 98.1 fl (80-100); Mean Platelet Volume 11.6 fl (7.4-10.4); Monocytes Absolute Auto 0.3 K/mm3 (0.1-0.6); Monocytes Percent Auto 2.9 % (2.6-8.5); Neutrophils Absolute Auto 8.3 K/mm3 (1.3-6.7); Neutrophils Percent Auto 88.6 % (45.5-73.1); Platelet Count Result 151 k/mm3 (150-375); Red Blood Count 4.75 M/mm3 (4.6-6.20); White Blood Count 9.4 K/mm3 (4.5-10.0)
[2020-12-17 18:57] LABS: Alanine Aminotransferase 26 U/L (4-50); Albumin Level 4.8 g/dL (3.5-5.1); Alkaline Phosphatase 111 U/L (38-126); Anion Gap 16 mmol/L (8-16); Aspartate Amino Transferase 42 U/L (17-59); Bilirubin,Total 0.9 mg/dL (0.2-1.3); Blood Urea Nitrogen 12 mg/dL (9-20); Calcium 9.7 mg/dL (8.4-10.2); Carbon Dioxide 22 mmol/L (22-30); Chloride 99 mmol/L (98-107); Estimated CRCL calculation 49 ml/min; Estimated Glomerular Filt Rate 55; Glucose 264 mg/dL (75-110); Potassium 4.3 mmol/L (3.4-5.0); Sodium 137 mmol/L (137-145)
[2020-12-17 18:58] LABS: Add Urine Microscopic? YES; Appearance Urine Clear (Clear); Bilirubin Urine Negative (Negative); Blood Urine Negative (Negative); Color Urine Yellow (Yellow); Glucose Urine UA 1+ mg/dL (Negative); Ketones Urine 1+ mg/dL (Negative); Leukocyte Esterase Ur Negative LEU/UL (Negative); Mucus Urine Rare /lpf; Nitrate Urine Negative (Negative); Protein Urine 2+ mg/dL (Negative); Specific Grav Ur 1.013 (1.001-1.035); Urobilinogen Urine Negative mg/dL (<2.0); WBC Urine 0-3 /hpf
--- NOTE | 2020-12-17 19:15 | PC.NURSE ---
Pt being registered when began complaining of substernal chest pain. Pt assisted into triage. Pt wretching, emesis of bile colored liquid. EKG done and shown to Dr. Thorpe. Pt given cool clothe, states is feeling a little better. Preparing to return to family services room to lie down on the couch there. Family will stay with patient and inform staff if worsening condition.
--- NOTE | 2020-12-17 19:26 | ECG_ITS ---
Measurements Intervals [place] Rate: 100 P: 50 [place]V: 148 QRS: -8 QRSD: 93 T: 53 QT: 367 QTc: 475 Interpretive Statements SINUS TACHYCARDIA BASELINE WANDER- II, III, AVR, AVF, V1-V6 BORDERLINE ECG Electronically Signed On 12-17-2020 21:28:07 CDT by Horacio Jacobo D.O.
[2020-12-17 20:30] VITALS: BP 138/92; PULSE 99; RESP 18; O2SAT 99
[2020-12-17 20:51] LABS: Lipase < 10 U/L (23-300)
[2020-12-17] MEDS: FAMOTIDINE 20 MG/2 ML VIAL IV PUSH (21:12)
[2020-12-17] MEDS: SODIUM CHLORIDE 0.9% IV 1,000 ML 999 ML IV CONT ×2 (21:12→22:45)
[2020-12-17] MEDS: ONDANSETRON INJ 4 MG/2 ML VIAL IV PUSH (21:13)
[2020-12-17] MEDS: MORPHINE SULFATE (*CRX) 4 MG/ML INJ IV PUSH ×2 (21:13→22:45)
--- NOTE | 2020-12-17 21:24 | ED.ABDPAIN ---
HPI - Abdominal Pain General Chief Complaint: Abdominal Pain Stated Complaint: abd pain Time Seen by Provider: 12/17/20 20:35 Source: patient, family and RN notes reviewed Mode of arrival: ambulatory Limitations: no limitations History of Present Illness HPI narrative: Patient 65-year-old male who presents to emergency department for evaluation of abdominal pain that began this morning patient notes the pain began in the upper chest and radiated down to the abdomen denies having severe cramping of the abdomen patient denies vomiting does note some nausea patient had a similar occurrence over a year ago unsure as to the etiology patient notes that he had beer and pizza the night before Related Data Home Medications Medication Instructions Recorded Confirmed acetaminophen 500 mg PO Q6H PRN 01/07/20 01/07/20 atorvastatin [Lipitor] 10 mg PO HS 01/07/20 01/07/20 Allergies Allergy/AdvReac Type Severity Reaction Status Date / Time hydrocodone Allergy Intermediate Itching Verified 12/17/20 20:34 Cephalosporins Allergy Mild Unknown Verified 12/17/20 20:34 TAPE Allergy Mild Unknown Uncoded 12/17/20 20:34 Review of Systems Review of Systems: All systems reviewed & are unremarkable except as noted in HPI and below PMFSH Past Medical History Medical History Heart valve disease Pelvic fracture Type 1 diabetes mellitus Family History Family History Sibling Suicide Social History Social History Smoking packs per day: 1 Smoking cigarettes per day: 20.0 Years smoked: 50 Smoking pack-years: 50.00 Smoking status: Former smoker Tobacco type: cigarettes Smoking end date: 07/17/17 Alcohol intake: current Drinks per week: 14 Substance use: current Substance use type: marijuana Other substance usage details: medical marijuana card Gender identity (if verbalized by the patient): Male Spiritual care concerns: No Exam Narrative: Exam Narrative: GENERAL: Well-appearing, well-nourished, uncomfortable and in no acute distress. HEAD: Normocephalic, atraumatic. EYES: PERRLA and EOMI. ENT: Nares clear, no rhinorrhea or epistaxis. Mucous membranes moist. CHEST: Clear to auscultation. No respiratory distress. No wheezes rales or rhonchi HEART: Regular rate and rhythm. No murmur heard. Normal peripheral pulses. ABDOMEN: Soft, tenderness throughout the abdomen with voluntary guarding, nondistended, normal active bowel sounds. EXTREMITIES: Normal range of motion. No edema. SKIN: Warm, dry, no rash. NEURO: No focal deficits. Alert and oriented x3. PSYCH: Normal mood and affect. Course Course Emergency Course: Patient evaluated in the emergency department was sent over for rule out dissection given his presentation and pain was given medications with improvement patient does note that he feels better and comfortable to go home ABCs and vital signs intact and stable patient agreeing to follow-up with provided GI referral Vital Signs Vital signs: Vital Signs Temperature 96.9 F L 12/17/20 18:00 Pulse Rate 103 H 12/17/20 18:00 Respiratory Rate 20 12/17/20 18:00 Blood Pressure 142/104 H 12/17/20 18:00 Pulse Oximetry 99 12/17/20 18:00 Temperature 96.9 F L 12/17/20 18:00 Pulse Rate 88 12/17/20 22:45 Respiratory Rate 16 12/17/20 22:45 Blood Pressure 165/74 H 12/17/20 22:45 Pulse Oximetry 96 12/17/20 22:45 MDM - Abdominal Pain MDM Narrative Medical decision making narrative: Patient evaluated for GI upset was hydrated medicated feeling better could be gastritis secondary to what he ate the night before no other concerning findings felt appropriate for outpatient reevaluation with GI follow-up will be placed on liquid diet for the next day Differential Diagnosis Differential diagnosis: Likely abdominal pain, acute appendic
[2020-12-17 21:25] LABS: Troponin I < 0.012 ng/mL (0.000-0.034)
[2020-12-17 21:52] LABS: INR 1.2; Partial Thromboplastin Time 27.4 SECONDS (22.3-36.8); Prothrombin Time 15.4 Seconds (11.1-14.7)
[2020-12-17] MEDS: METOCLOPRAMIDE HCL INJ 10 MG/2 ML VIAL IV PUSH (22:44)
[2020-12-17] MEDS: PANTOPRAZOLE SODIUM IV 40 MG VIAL IV PUSH (22:44)
[2020-12-17 22:45] VITALS: BP 165/74; PULSE 88; RESP 16; O2SAT 96
--- NOTE | 2020-12-17 23:21 | PC.NURSE ---
assumed care of pt. at this time. Report from KARLOS Wyman.
[2020-12-18 00:25] VITALS: BP 140/70; PULSE 80; RESP 14; O2SAT 97
== END 2020-12-18 00:25 | disposition home or self-care (01) ==
PROVIDERS: Emergency Medicine; Emergency Medicine Emergency Medical Services; Emergency Provider Emergency Medicine; PCP Family Medicine Sports Medicine
DX: R10.9 Unspecified abdominal pain (principal); E10.9 Type 1 diabetes mellitus without complications; I38 Endocarditis, valve unspecified; Z87.891 Personal history of nicotine dependence; R00.0 Tachycardia, unspecified; K44.9 Diaphragmatic hernia without obstruction or gangrene; Z90.81 Acquired absence of spleen; Z90.411 Acquired partial absence of pancreas; K86.1 Other chronic pancreatitis
CPT/HCPCS: 36415; 71275; 74174; 80053; 81001; 83690; 84484; 85025; 85610; 85730; 93005; 96374; 96375; 96376; 99284; C9113; J2270; J2405; J2765; J7030; Q9967

== ENCOUNTER 2022-03-18 22:43 | Emergency (ER) | payer MEDICARE, OTHER, SELFPAY ==
[2022-03-18] VITALS (7 sets, daily range): BP systolic 146–181; BP diastolic 73–99; PULSE 46–77; RESP 11–21; TEMP 36.4; O2SAT 98–100
--- NOTE | ~2022-03-18 | CT_ITS ---
EXAMINATION: CT abdomen pelvis w con DATE: 03/19/2022 02:20 INDICATION: Severe epigastric pain, nausea and vomiting TECHNIQUE: Computed tomography (CT) of the abdomen and pelvis was performed with 100 mL Omnipaque-350 intravenous contrast. Automated exposure control and iterative reconstruction technique were employe d. The dose-length product was 404.18 mGy-cm. COMPARISON: 12/17/2020 FINDINGS: Mild dependent atelectasis in the bilateral lower lobes. Heart size is normal. No pericardial or pleu ral effusion. Aortic valve repair. Small sliding-type hiatal hernia. Mild intra and extra hepatic nichole iary ductal dilation which is within normal limits post cholecystectomy with surgical clips at the ga llbladder fossa. Body and tail the pancreas are not visualized and reportedly surgically absent. Dyst rophic calcific lesions at the head of the pancreas likely sequela of chronic pancreatitis. Absent sp ashok with small splenule posterior to the gastric fundus. Bilateral adrenal glands and kidneys are no rmal. Bowels including the appendix are normal. Moderately distended urinary bladder. Mild prostatome jona. Old posttraumatic and postoperative changes in the osseous pelvis with internal fixation multip le old fractures including at the bilateral superior and inferior pubic rami on the left innominate b one and with distal screws spanning the bilateral sacroiliac joints. IMPRESSION: 1. No acute intra-abdominal/pelvic process. 2. Small sliding-type hiatal hernia. 3. Calcification at the head of the pancreas likely sequela of chronic pancreatitis with prior resect ion of the spleen and body and tail of the pancreas. 4. Multiple postoperative changes at the osseous pelvis for fixation of old bilateral pelvic fracture s. Reviewed, dictated and finalized at location A. IMPRESSION: 1. No acute intra-abdominal/pelvic process. 2. Small sliding-type hiatal hernia. 3. Calcification at the head of the pancreas likely sequela of chronic pancreat itis with prior resection of the spleen and body and tail of the pancreas. 4. Multiple postoperative changes at the osseous pelvis for fixation of old nichole ateral pelvic fractures.
--- NOTE | ~2022-03-18 | XR_ITS ---
EXAMINATION: XR chest 1V portable DATE: 03/18/2022 23:26 INDICATION: Fever TECHNIQUE: frontal view of the chest was obtained. COMPARISON: 10/01/[address] dated 12/17/2020 FINDINGS: Calcified nodule in the left midlung zone consistent with old granulomatous disease. Linear discoid a telectasis/scarring at the lingula. No other airspace opacities, pulmonary edema, pleural effusion or pneumothorax. The cardiomediastinal silhouette is normal. Median sternotomy wires and aortic valve r epair. Cholecystectomy clips in right upper quadrant. IMPRESSION: 1. Mild lingular discoid atelectasis/scarring. No other acute cardiopulmonary disease. Reviewed, dictated and finalized at location A. IMPRESSION: 1. Mild lingular discoid atelectasis/scarring. No other acute cardiopulmonary d isease.
[2022-03-18 23:00] LABS: Basophils Percent Auto 0.5 % (0.2-1.2); Eosinophils Absolute Auto 0.1 K/mm3 (0-0.3); Eosinophils Percent Auto 0.9 % (0-4.4); Hematocrit 44.1 % (42.0-52.0); Hemoglobin 14.8 g/dL (14.0-18.0); Immature Granulocyte Absolute 0.01 K/mm3 (0.00-0.031); Immature Granulocyte Percent A 0.2 % (0-0.5); Lymphocytes Absolute Auto 1.56 K/mm3 (0.9-3.2); Lymphocytes Percent Auto 24.2 % (18.3-44.2); Mean Corpuscular HGB Conc 33.6 g/dl (32-36); Mean Corpuscular Hemoglobin 33.3 pg (26-34); Mean Corpuscular Volume 99.1 fl (80-100); Mean Platelet Volume 11.2 fl (7.4-10.4); Monocytes Absolute Auto 0.5 K/mm3 (0.1-0.6); Monocytes Percent Auto 7.8 % (2.6-8.5); Neutrophils Absolute Auto 4.3 K/mm3 (1.3-6.7); Neutrophils Percent Auto 66.4 % (45.5-73.1); Platelet Count Result 157 k/mm3 (150-375); Red Blood Count 4.45 M/mm3 (4.6-6.20); Red Cell Distribution Width 13.3 % (11.5-14.5); White Blood Count 6.4 K/mm3 (4.5-10.0)
--- NOTE | 2022-03-18 23:23 | ECG_ITS ---
Measurements Intervals [place] Rate: 49 P: 30 NH: 170 QRS: -14 QRSD: 94 T: 25 QT: 434 QTc: 392 Interpretive Statements SINUS BRADYCARDIA BASELINE WANDER- AVR, AVL, AVF, V1-V6 ABNORMAL ECG COMPARED TO ECG 12/17/2020 19:18:06 SINUS BRADYCARDIA NOW PRESENT Electronically Signed On 03-19-2022 7:27:45 CDT by Horacio Jacobo D.O.
[2022-03-18] MEDS: SODIUM CHLORIDE 0.9% IV 1,000 ML 999 ML IV CONT (23:41)
[2022-03-18] MEDS: ONDANSETRON INJ 4 MG/2 ML VIAL IV PUSH (23:42)
[2022-03-18] MEDS: MORPHINE SULFATE (*CRX) 4 MG/ML INJ IV PUSH (23:42)
[2022-03-18] MEDS: SODIUM CHLORIDE 0.9% IV 100 ML 500 ML (23:43)
--- NOTE | 2022-03-18 23:58 | ED.GENADULT ---
HPI - General Adult General Chief complaint: Abdominal Pain Stated complaint: abdominal pain with nausea Time Seen by Provider: 03/18/22 23:05 History of Present Illness HPI narrative: Patient is 67-year-old gentleman who presents the emergency department with chief complaint of abdominal pain. Patient reports that he has history of bowel and pancreatic issues patient reports that he started having pain yesterday but got worse today patient states that the sharp type pain in the epigastric region patient reports has been diaphoretic and feels hot. Patient reports prior history of pancreatic issues and has had a partial pancreatectomy. The patient also has had bowel inflammation in the past per the patient. Related Data Home Medications Medication Instructions Recorded Confirmed acetaminophen 500 mg tablet 500 mg PO Q6H PRN Pain (Scale 01/07/20 01/07/20 Score 4-6) atorvastatin 10 mg tablet (Lipitor) 10 mg PO HS 01/07/20 01/07/20 Allergies Allergy/AdvReac Type Severity Reaction Status Date / Time hydrocodone Allergy Intermediate Itching Verified 03/18/22 22:50 Cephalosporins Allergy Mild Unknown Verified 03/18/22 22:50 TAPE Allergy Mild Unknown Uncoded 12/17/20 20:34 Review of Systems Review of Systems: A 10 system review of systems was completed on the patient and is negative except for what is stated in the HPI. Nursing and ancillary documentation was reviewed. PMFSH Past Medical History Medical History Heart valve disease Pelvic fracture Type 1 diabetes mellitus Family History Family History Sibling Suicide Social History Social History Smoking packs per day: 1 Smoking cigarettes per day: 20.0 Years smoked: 50 Smoking pack-years: 50.00 Smoking status: Former smoker Tobacco type: cigarettes Smoking end date: 07/17/17 Alcohol intake: current Drinks per week: 14 Substance use: current Substance use type: marijuana Other substance usage details: medical marijuana card Gender identity (if verbalized by the patient): Male Spiritual care concerns: No Exam Narrative: GENERAL: Well-appearing, well-nourished, and in moderate pain distress, diaphoretic. HEAD: Normocephalic, atraumatic. EYES: PERRLA and EOMI. ENT: Nares clear, no rhinorrhea or epistaxis. Mucous membranes moist. NECK: Supple. CHEST: Clear to auscultation. No respiratory distress. HEART: Bradycardic rate and rhythm. No murmur heard. Normal peripheral pulses. ABDOMEN: Soft, diffusely tender to palpation, nondistended, normal active bowel sounds. EXTREMITIES: Normal range of motion. No edema. SKIN: Warm, dry, no rash. NEURO: No focal deficits. Alert and oriented x3. PSYCH: Normal mood and affect. Course Course Emergency Course: EKG shows sinus bradycardia with a rate of [address] elevation or ST depression Vital Signs Vital signs: Vital Signs Temperature 36.4 C L 03/18/22 22:45 Pulse Rate 65 03/18/22 22:45 Respiratory Rate 03/18/22 22:45 Blood Pressure 146/73 H 03/18/22 22:45 Pulse Oximetry 100 03/18/22 22:45 Oxygen Delivery Room Air 03/18/22 22:45 Temperature 36.4 C L 03/18/22 22:45 Pulse Rate 65 03/18/22 22:45 Respiratory Rate 20 03/18/22 22:45 Blood Pressure 146/73 H 03/18/22 22:45 Pulse Oximetry 100 03/18/22 22:45 Oxygen Delivery Room Air 03/18/22 22:45 Medical Decision Making Vital Signs Vital Signs: Vital Signs Temperature 36.4 C L 03/18/22 22:45 Pulse Rate 65 03/18/22 22:45 Respiratory Rate 20 03/18/22 22:45 Blood Pressure 146/73 H 03/18/22 22:45 Pulse Oximetry 100 03/18/22 22:45 Oxygen Delivery Room Air 03/18/22 22:45 Temperature 36.4 C L 03/18/22 22:45 Pulse Rate 65 03/18/22 22:45 Respiratory Rate 03/18/22 22:45 Blood Pre
[2022-03-19] VITALS (25 sets, daily range): BP systolic 130–186; BP diastolic 55–91; PULSE 41–82; RESP 13–22; O2SAT 92–100
[2022-03-19 00:23] LABS: Lactic Acid Reflex 1.6 mmol/L (0.7-2.0)
[2022-03-19 00:37] LABS: Appearance Urine Clear (Clear); Bilirubin Urine Negative (Negative); Color Urine Yellow (Yellow); Glucose Urine UA 3+ mg/dL (Negative); Ketones Urine 1+ mg/dL (Negative); Leukocyte Esterase Ur Negative LEU/UL (Negative); Nitrate Urine Negative (Negative); Protein Urine Negative (Negative); Urobilinogen Urine 0.2 mg/dL (<2.0)
[2022-03-19 00:40] LABS: Troponin I < 0.012 ng/mL (0.000-0.034)
[2022-03-19 00:46] LABS: Beta-Hydroxybutyrate/Acetoacetate 1.33 mmol/L (0.02-0.27)
[2022-03-19 00:48] LABS: SARS-CoV-2 RNA PCR Negative
[2022-03-19 00:54] LABS: Add Urine Microscopic? YES; Blood Urine Trace-Intact (Negative)
[2022-03-19 00:56] LABS: RBC Urine 0-2 /hpf (0-2); WBC Urine 0-3 /hpf (0-3)
[2022-03-19 00:57] LABS: Bacteria Urine Trace /hpf
[2022-03-19] MEDS: HYDROmorphone HCL INJ (*CRX) 1 MG/ML SYR IV PUSH (01:04)
[2022-03-19] MEDS: SODIUM CHLORIDE 0.9% IV 100 ML 500 ML (01:04)
[2022-03-19] MEDS: SODIUM CHLORIDE 0.9% IV 1,000 ML 999 ML IV CONT (01:15)
[2022-03-19 01:18] LABS: Procalcitonin 0.1 ng/mL
[2022-03-19 01:22] LABS: Glucose Point of Care 473 mg/dl (65-105)
[2022-03-19 01:44] LABS: Alanine Aminotransferase 24 U/L (6-50); Albumin Level 4.5 g/dL (3.5-5.1); Alkaline Phosphatase 101 U/L (38-126); Anion Gap 14 mmol/L (8-16); Aspartate Amino Transferase 36 U/L (17-59); Bilirubin,Total 0.8 mg/dL (0.2-1.3); Blood Urea Nitrogen 9 mg/dL (9-20); Calcium 9.6 mg/dL (8.4-10.2); Carbon Dioxide 20 mmol/L (22-30); Chloride 96 mmol/L (98-107); Estimated Glomerular Filt Rate 55; Glucose 612 mg/dL (65-110); Sodium 130 mmol/L (137-145)
--- NOTE | 2022-03-19 01:45 | PC.NURSE ---
Notified Dr Thorpe of Glucose of 212
[2022-03-19 02:09] LABS: Lipase < 10 U/L (23-300)
[2022-03-19 03:32] LABS: Glucose Point of Care 421 mg/dl (65-105)
== END 2022-03-19 04:10 | disposition home or self-care (01) ==
PROVIDERS: Emergency Provider Emergency Medicine; PCP Family Medicine Sports Medicine
DX: R10.13 Epigastric pain (principal); E10.65 Type 1 diabetes mellitus with hyperglycemia; R33.9 Retention of urine, unspecified; Z20.822 Contact with and (suspected) exposure to COVID-19; I38 Endocarditis, valve unspecified; Z87.891 Personal history of nicotine dependence; R00.1 Bradycardia, unspecified
CPT/HCPCS: 36415; 71045; 74177; 80053; 81001; 82010; 82948; 83605; 83690; 84145; 84484; 85025; 87040; 93005; 96361; 96365; 96375; 99284; C9803; J0131; J1170; J2270; J2405; J7030; Q9967; U0003; U0005

== ENCOUNTER 2023-02-24 09:23 | Observation (INO) | payer MEDICARE, OTHER, SELFPAY ==
[2023-02-24] VITALS (32 sets, daily range): BP systolic 135–174; BP diastolic 66–95; PULSE 44–85; RESP 11–24; TEMP 36.2–36.4; O2SAT 99–100; BMI 24.0
--- NOTE | ~2023-02-24 | CT_ITS ---
EXAMINATION: CTA chest abdomen pelvis DATE: 02/24/2023 11:13 INDICATION: Chest and abdominal pain TECHNIQUE: Computed tomographic angiography (CTA) of the chest, abdomen, and pelvis was performed wit hout and with 100 mL Omnipaque-350 intravenous contrast. Volume-rendered 3D-reconstructions of the ao rta and large arteries were constructed by the technologist on a separate workstation. Automated expo sure control and iterative reconstruction technique were employed. The dose-length product was 477.03 mGy-cm. COMPARISON: CT abdomen pelvis dated 03/19/[address] chest, abdomen and pelvis dated 12/17/2020 FINDINGS: Chest: Mild emphysema. Calcified nodule at the junction of the left upper lobe and lingula which along with calcified left hilar lymph nodes are consistent with old granulomatous disease. Mild dependent atelec tasis in the bilateral lower lobes. No pneumonia, pulmonary edema, pleural effusion or pneumothorax. Heart size is normal. Atherosclerotic coronary artery calcification. No pericardial effusion. Median sternotomy wires and aortic valve repair. Thoracic aorta is normal in caliber with no dissection. No pathologically enlarged thoracic lymphadenopathy. Mild thoracic spondylosis Abdomen and pelvis: Cholecystectomy clips at the gallbladder fossa. Likely benign 6 mm enhancing lesion in the right hepa tic lobe without interval change since 12/24/2020. Spleen is absent with residual small splenule poste rior to the gastric fundus. Again seen are coarse calcifications at the head of the pancreas likely s equela of chronic pancreatitis. There is prominent atrophy of the body of the pancreas with no eviden t pancreatic tissue seen distal to several densities at the junction of the body and tail consistent with provided history of prior partial pancreatectomy. Bilateral adrenal glands and kidneys are jadiel l. Normal appendix. No bowel obstruction. Bladder is normal. Chronic pelvic fractures with plate and screw fixation along the anterior left iliac spine, fixation screws extending across the bilateral wells perior pubic rami and fixation screws spanning from left to right across the sacrum and bilateral sac roiliac joints. Embolization coils in the region of the left sciatic notch. No free intraperitoneal g as or fluid. No pathologically enlarged abdominal or pelvic lymphadenopathy. There is scattered calci fied atherosclerosis of the aorta and many of the other arteries. No evident hemodynamic significant stenosis, aneurysm or dissection. IMPRESSION: 1. Normal caliber aorta with no aneurysm or dissection. 2. Mild emphysema. 3. No acute intra-abdominal/pelvic process. 4. Multiple postoperative changes in the abdomen and pelvis including cholecystectomy, splenectomy, p artial pancreatectomy, internal fixation of chronic pelvic fractures and embolization coiling of a ve ssel at the left sciatic notch. Reviewed, dictated and finalized at location B. IMPRESSION: 1. Normal caliber aorta with no aneurysm or dissection. 2. Mild emphysema. 3. No acute intra-abdominal/pelvic process. 4. Multiple postoperative changes in the abdomen and pelvis including cholecyst ectomy, splenectomy, partial pancreatectomy, internal fixation of chronic pelvi c fractures and embolization coiling of a vessel at the left sciatic notch.
--- NOTE | 2023-02-24 09:42 | ECG_ITS ---
Measurements Intervals [place] Rate: 79 P: 56 MD: 193 QRS: 3 QRSD: 93 T: 46 QT: 402 QTc: 463 Interpretive Statements SINUS RHYTHM POSSIBLE LEFT ATRIAL ENLARGEMENT [-0.1mV P WAVE IN V1/V2] COMPARED TO ECG 03/18/2022 23:34:32 SINUS RHYTHM NOW PRESENT Electronically Signed On 02-24-2023 14:26:35 CDT by Adonay Ruiz M.D.
[2023-02-24] MEDS: MORPHINE SULFATE (*CRX) 4 MG/ML INJ IV PUSH ×2 (09:53→13:30)
[2023-02-24] MEDS: SODIUM CHLORIDE 0.9% IV 1,000 ML 999 ML IV CONT ×2 (09:53→12:50)
[2023-02-24] MEDS: PROCHLORPERAZINE EDISYLATE 10 MG/2 ML VIAL IV PUSH (09:55)
[2023-02-24 09:58] LABS: Basophils Absolute Auto 0.1 K/mm3 (0.0-0.1); Basophils Percent Auto 0.7 % (0.2-1.2); Eosinophils Percent Auto 0.4 % (0-4.4); Hematocrit 42.9 % (42.0-52.0); Hemoglobin 14.7 g/dL (14.0-18.0); Immature Granulocyte Absolute 0.02 K/mm3 (0.00-0.031); Immature Granulocyte Percent A 0.2 % (0-0.5); Lymphocytes Absolute Auto 2.54 K/mm3 (0.9-3.2); Lymphocytes Percent Auto 25.6 % (18.3-44.2); Mean Corpuscular HGB Conc 34.3 g/dl (32-36); Mean Corpuscular Hemoglobin 32.6 pg (26-34); Mean Corpuscular Volume 95.1 fl (80-100); Mean Platelet Volume 10.9 fl (7.4-10.4); Monocytes Absolute Auto 0.6 K/mm3 (0.1-0.6); Monocytes Percent Auto 6.4 % (2.6-8.5); Neutrophils Absolute Auto 6.6 K/mm3 (1.3-6.7); Neutrophils Percent Auto 66.7 % (45.5-73.1); Platelet Count Result 182 k/mm3 (150-375); Red Blood Count 4.51 M/mm3 (4.6-6.20); Red Cell Distribution Width 13.5 % (11.5-14.5); White Blood Count 9.9 K/mm3 (4.5-10.0)
[2023-02-24 10:10] LABS: Lactic Acid Reflex 2.6 mmol/L (0.7-2.0)
[2023-02-24 10:11] LABS: Alanine Aminotransferase 23 U/L (6-50); Albumin Level 4.2 g/dL (3.5-5.1); Alkaline Phosphatase 106 U/L (38-126); Anion Gap 9 mmol/L (8-16); Aspartate Amino Transferase 31 U/L (17-59); Bilirubin,Total 0.5 mg/dL (0.2-1.3); Blood Urea Nitrogen 12 mg/dL (9-20); Calcium 9.2 mg/dL (8.4-10.2); Carbon Dioxide 20 mmol/L (22-30); Chloride 101 mmol/L (98-107); Estimated CRCL calculation 45 ml/min; Estimated Glomerular Filt Rate 50; Glucose 398 mg/dL (65-110); Sodium 130 mmol/L (137-145)
[2023-02-24 10:23] LABS: Troponin I < 0.012 ng/mL (0.000-0.034)
--- NOTE | 2023-02-24 10:24 | ED.ABDPAIN ---
HPI - Abdominal Pain General Chief Complaint: Abdominal Pain Stated Complaint: vomiting Time Seen by Provider: 02/24/23 09:27 History of Present Illness HPI narrative: This is a 68-year-old male with past history of type 1 diabetes, presents to the emergency department complaining of nausea and diffuse pain for the past day. The patient is not sure what may have prompted this. He describes the pain as putrid is rated 10 out of 10 and is intermittent without any obvious aggravating or alleviating factors. He also complains of multiple episodes of dry heaving but denies diarrhea. He states his blood sugars have been running high, in the 300s-400s. Related Data Home Medications Medication Instructions Recorded Confirmed acetaminophen 500 mg tablet 500 mg PO Q6H PRN Pain (Scale 01/07/20 02/24/23 Score 4-6) atorvastatin 20 mg tablet 20 mg PO DAILY 02/24/23 02/24/23 ezetimibe 10 mg tablet 10 mg PO DAILY 02/24/23 02/24/23 insulin lispro 100 unit/mL 60 unit subcut DAILY 02/24/23 02/24/23 subcutaneous solution (Humalog U-100 Insulin) omega-3 acid ethyl esters 1 gram 1 g PO QID 02/24/23 02/24/23 capsule omeprazole 40 mg capsule,delayed 40 mg PO DAILY 02/24/23 02/24/23 release Allergies Allergy/AdvReac Type Severity Reaction Status Date / Time hydrocodone Allergy Intermediate Itching Verified 02/24/23 09:34 Cephalosporins Allergy Mild Unknown Verified 02/24/23 09:34 TAPE Allergy Mild Unknown Uncoded 12/17/20 20:34 Review of Systems Review of Systems: CONSTITUTIONAL: Denies fever, chills, or sweats. CARDIOVASCULAR: Chest pain denies palpitations, or edema. RESPIRATORY: Denies cough or dyspnea. GASTROINTESTINAL: Abdominal pain, nausea and dry heaving denies diarrhea. GENITOURINARY: Denies dysuria or hematuria. SKIN: Denies rash or itching. MUSCULOSKELETAL: Diffuse myalgias, back pain denies joint pain NEUROLOGIC: Denies headache, numbness, dizziness, or weakness. PSYCHIATRIC: Denies anxiety or depression. [facility] Past Medical History Medical History Heart valve disease Pelvic fracture Type 1 diabetes mellitus Family History Family History Sibling Suicide Social History Social History Smoking packs per day: 1 Smoking cigarettes per day: 20.0 Years smoked: 50 Smoking pack-years: 50.00 Smoking status: Former smoker Alcohol intake: current Drinks per week: 14 Substance use: current Substance use type: marijuana Other substance usage details: medical marijuana card Lack of Transportation: No Lack of Food: Never True Current Housing: I Have Housing Concerned About Future Housing: No Difficulty Paying Gas/Electric Bills: No Difficulty Paying for Meds: No Currently Unemployed: No Education: Decline to Answer Difficulty w/ Childcare or Family Care: No Gender identity (if verbalized by the patient): Male Spiritual care concerns: No Exam Narrative: GENERAL: Well-developed, well-nourished, in moderate to severe distress due to pain and nausea HEAD: Normocephalic, atraumatic. EYES: PERRLA and EOMI. ENT: Nares clear, no rhinorrhea or epistaxis. Mucous membranes moist. Oropharynx without tonsillar hypertrophy exudate or other lesions. CHEST: Clear to auscultation. No respiratory distress. No wheezes rales or rhonchi HEART: Regular rate and rhythm. No murmur heard. Normal peripheral pulses. ABDOMEN: Soft, diffusely tender to palpation, without rebound or guarding, nondistended, normal active bowel sounds. EXTREMITIES: Normal range of motion. No edema. SKIN: Warm, dry, no rash. NEURO: No focal deficits. Alert and oriented x3. PSYCH: Normal mood and affect. Course Course Emergency Course: 12:35 - CT chest abdomen pelvis negative for dissection or other acute intra-abdominal process. CBC within
[2023-02-24] MEDS: ONDANSETRON INJ 4 MG/2 ML VIAL IV PUSH (11:59)
[2023-02-24] MEDS: KETOROLAC 30 MG/ML VIAL (*BKC) IV PUSH (12:01)
[2023-02-24 12:56] LABS: Reflex Lactic Acid Yes or No Add Lactic
--- NOTE | 2023-02-24 13:22 | PC.NURSE ---
ERP aware of pt asking for morphine.
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
[2023-02-24 14:15] LABS: Lactic Acid 1.1 mmol/L (0.7-2.0)
[2023-02-24 15:01] LABS: Glucose Point of Care 263 mg/dl (65-105)
--- NOTE | 2023-02-24 15:02 | PC.NURSE ---
called to floor, report KARLOS Hernandez
--- NOTE | 2023-02-24 15:10 | ADMGEN ---
This patient, Jose Mendoza, was admitted to 3 [facility] Surg Room 327-01 @ 1510. Patient/family oriented to hospital policies and general routines including ID bracelet, bed and alarms, visiting hours, pain management, procedures, bathroom and other care routines, personal items, smoking policy, room service/diet, and visiting hours. Information on how to activate the Rapid Response Team has been discussed. Patient/Family are encouraged to report perceived risks to care and to ask questions if they do not understand what they are told or what they should do.
[2023-02-24 15:53] LABS: Glucose Point of Care 261 mg/dl (65-105)
[2023-02-24 19:02] LABS: Glucose Point of Care 280 mg/dl (65-105)
[2023-02-24] MEDS: SODIUM CHLORIDE 0.9% IV 1,000 ML 150 ML IV CONT (19:43)
[2023-02-24] MEDS: MORPHINE SULFATE (*CRX) 2 MG/ML INJ IV PUSH (19:43)
[2023-02-24] MEDS: ACETAMINOPHEN 500 MG TABLET PO (19:44)
[2023-02-24 20:11] LABS: Lactic Acid Reflex 1.3 mmol/L (0.7-2.0)
[2023-02-24 20:45] LABS: Troponin I < 0.012 ng/mL (0.000-0.034)
[2023-02-25] MEDS: METOCLOPRAMIDE HCL INJ 10 MG/2 ML VIAL IV PUSH ×2 (00:41→06:08)
[2023-02-25 01:04] LABS: Glucose Point of Care 149 mg/dl (65-105)
[2023-02-25] MEDS: SODIUM CHLORIDE 0.9% IV 1,000 ML 150 ML IV CONT (05:56)
[2023-02-25 06:00] VITALS: BP 113/92; PULSE 67; RESP 18; TEMP 36.5; O2SAT 97
[2023-02-25 06:56] LABS: Basophils Percent Auto 0.3 % (0.2-1.2); Eosinophils Percent Auto 0.2 % (0-4.4); Hematocrit 38.2 % (42.0-52.0); Hemoglobin 12.8 g/dL (14.0-18.0); Immature Granulocyte Absolute 0.03 K/mm3 (0.00-0.031); Immature Granulocyte Percent A 0.3 % (0-0.5); Lymphocytes Absolute Auto 2.73 K/mm3 (0.9-3.2); Lymphocytes Percent Auto 26.1 % (18.3-44.2); Mean Corpuscular HGB Conc 33.5 g/dl (32-36); Mean Corpuscular Hemoglobin 32.5 pg (26-34); Mean Platelet Volume 10.6 fl (7.4-10.4); Monocytes Percent Auto 9.6 % (2.6-8.5); Neutrophils Absolute Auto 6.6 K/mm3 (1.3-6.7); Neutrophils Percent Auto 63.5 % (45.5-73.1); Platelet Count Result 160 k/mm3 (150-375); Red Blood Count 3.94 M/mm3 (4.6-6.20); Red Cell Distribution Width 13.4 % (11.5-14.5); White Blood Count 10.4 K/mm3 (4.5-10.0)
[2023-02-25 07:06] LABS: Alanine Aminotransferase 19 U/L (6-50); Albumin Level 3.2 g/dL (3.5-5.1); Alkaline Phosphatase 71 U/L (38-126); Anion Gap 9 mmol/L (8-16); Aspartate Amino Transferase 30 U/L (17-59); Bilirubin,Total 0.4 mg/dL (0.2-1.3); Blood Urea Nitrogen 13 mg/dL (9-20); Calcium 7.4 mg/dL (8.4-10.2); Carbon Dioxide 21 mmol/L (22-30); Chloride 107 mmol/L (98-107); Estimated CRCL calculation 49 ml/min; Estimated Glomerular Filt Rate 55; Glucose 130 mg/dL (65-110); Potassium 3.4 mmol/L (3.4-5.0); Sodium 137 mmol/L (137-145)
[2023-02-25] MEDS: PANTOPRAZOLE 40 MG TABLET PO (08:21)
[2023-02-25] MEDS: ENOXAPARIN 40 MG/0.4 ML SYRINGE SUB-Q (08:21)
[2023-02-25] MEDS: OMEGA 3 POLYUNSAT FATTY ACIDS 1 GM CAP PO ×2 (08:21→13:40)
[2023-02-25] MEDS: ATORVASTATIN 20 MG TABLET PO (08:21)
[2023-02-25] MEDS: EZETIMIBE 10 MG TABLET PO (08:21)
[2023-02-25 10:27] LABS: Appearance Urine Clear (Clear); Bacteria Urine None Seen /hpf; Bilirubin Urine Negative (Negative); Blood Urine Negative (Negative); Color Urine Dark Yellow (Yellow); Glucose Urine UA 1+ mg/dL (Negative); Ketones Urine 1+ mg/dL (Negative); Leukocyte Esterase Ur Negative LEU/UL (Negative); Nitrate Urine Negative (Negative); Protein Urine 1+ mg/dL (Negative); RBC Urine 0-2 /hpf (0-2); Specific Grav Ur 1.034 (1.001-1.035); Squamous Epithelial Cell Urine None seen /hpf (Few); Urobilinogen Urine 0.2 mg/dL (<2.0); WBC Urine 0-5 /hpf; pH Urine 5.5 (5.0-9.0)
[2023-02-25 10:31] LABS: Add Urine Microscopic? YES
--- NOTE | 2023-02-25 13:55 | PM.IMPN ---
Progress Note: A&P Assessment and Plan (1) Diffuse abdominal pain: Code(s): R10.84 - Generalized abdominal pain Status: Acute (2) Intractable nausea and vomiting: Code(s): R11.2 - Nausea with vomiting, unspecified Status: Acute (3) Renal failure: Qualifiers: Renal failure chronicity: unspecified chronicity Qualified Code(s): N19 - Unspecified kidney failure Code(s): N19 - Unspecified kidney failure Status: Acute (4) Hyponatremia: Code(s): E87.1 - Hypo-osmolality and hyponatremia Status: Acute (5) Type 1 diabetes mellitus: Qualifiers: Diabetes mellitus complication status: without complication Qualified Code(s): E10.9 - Type 1 diabetes mellitus without complications Code(s): E10.9 - Type 1 diabetes mellitus without complications Status: Acute Plan 68-year-old male presented with severe epigastric pain and intractable nausea vomiting. That started yesterday. He had several episodes of dry heaving. No diarrhea reported. Blood sugar has been running in 300s to 400s. In ED evaluation he was moderate to severely in distress due to pain and nausea. CT chest abdomen pelvis was done which is negative for any acute intra-abdominal process. Vitals was stable cbc within normal limits. Mild JAMARCUS with creatinine of 1.4 with hyponatremia at 1:30 a.m.. Lactic acid was elevated 2.6 troponin was negative. LFTs were negative. CT chest abdomen pelvis showed multiple postoperative changes of the abdomen and pelvis including cholecystectomy splenectomy partial pancreatectomy internal fixation of the chronic pelvic fractures and embolization coiling of a vessel at the left sciatic notch. Knee was treated symptomatically with Zofran was treated with IV fluids. Reports taking spicy food recently. He really has underlying type 1 diabetes and on insulin pump. With supportive treatment and hydration his symptoms resolved. Along with resolution of his hyperglycemia. Lactic acid also resolved. His advanced in his diet which she is able to tolerate well. Unclear etiology for his symptoms however suspected to be related to underlying diabetic gastroparesis/GERD/gastritis. He received few doses of metoclopramide along with Protonix. His labs were unremarkable on 02/25/2023. Will advance his diet further and If tolerated will DC home later today. Subjective Date/time seen: 02/25/23 13:55 Interval history: 68-year-old male presented with severe epigastric pain and intractable nausea vomiting. That started yesterday. He had several episodes of dry heaving. No diarrhea reported. Blood sugar has been running in 300s to 400s. In ED evaluation he was moderate to severely in distress due to pain and nausea. CT chest abdomen pelvis was done which is negative for any acute intra-abdominal process. Vitals was stable cbc within normal limits. Mild JAMARCUS with creatinine of 1.4 with hyponatremia at 1:30 a.m.. Lactic acid was elevated 2.6 troponin was negative. LFTs were negative. CT chest abdomen pelvis showed multiple postoperative changes of the abdomen and pelvis including cholecystectomy splenectomy partial pancreatectomy internal fixation of the chronic pelvic fractures and embolization coiling of a vessel at the left sciatic notch. Knee was treated symptomatically with Zofran was treated with IV fluids. Reports taking spicy food recently. He really has underlying type 1 diabetes and on insulin pump. With supportive treatment and hydration his symptoms resolved. Along with resolution of his hyperglycemia. Lactic acid also resolved. His advanced in his diet which she is able to tolerate well. Unclear etiology for his symptoms however suspected to be related to underlying diabetic gastroparesis/GERD/gastritis. He received few doses of metoclopramide along with Protonix. His labs were unremarkable on 02/25/2023. Will advance his diet further and If tolerated
[2023-02-25 14:00] VITALS: BP 137/68; PULSE 66; RESP 14; TEMP 36.8; O2SAT 99
--- NOTE | 2023-02-25 15:17 | PM.DS ---
DS: Admitting Diagnosis Discharge Date 02/25/2023 Admitting Diagnosis abdominal pain DS: Discharge Diagnosis Discharge Diagnosis (1) Diffuse abdominal pain: Code(s): R10.84 - Generalized abdominal pain Status: Acute (2) Intractable nausea and vomiting: Code(s): R11.2 - Nausea with vomiting, unspecified Status: Acute (3) Renal failure: Qualifiers: Renal failure chronicity: unspecified chronicity Qualified Code(s): N19 - Unspecified kidney failure Code(s): N19 - Unspecified kidney failure Status: Acute (4) Hyponatremia: Code(s): E87.1 - Hypo-osmolality and hyponatremia Status: Acute (5) Type 1 diabetes mellitus: Qualifiers: Diabetes mellitus complication status: without complication Qualified Code(s): E10.9 - Type 1 diabetes mellitus without complications Code(s): E10.9 - Type 1 diabetes mellitus without complications Status: Acute DS: Summary Hospital Course Hospital Course: 68-year-old male presented with? severe epigastric pain? and intractable nausea vomiting.? That started yesterday.? He had several episodes of dry heaving.? No diarrhea reported.? Blood sugar has been running in 300s to 400s.? In ED evaluation he was moderate to severely in distress due to pain and nausea.? CT chest abdomen pelvis was done which is negative for any acute intra-abdominal process.? Vitals was stable cbc within normal limits.? Mild JAMARCUS with creatinine of 1.4 with hyponatremia at 1:30 a.m..? Lactic acid was elevated 2.6 troponin was negative.? LFTs were negative.? CT chest abdomen pelvis showed multiple postoperative changes of the abdomen and pelvis including cholecystectomy splenectomy partial pancreatectomy internal fixation of the chronic pelvic fractures and embolization coiling of a vessel at the left sciatic notch.? Knee was treated symptomatically with Zofran was treated with IV fluids.? Reports taking spicy food recently.? He really has underlying? type 1 diabetes and on insulin pump.? With supportive treatment and hydration his symptoms resolved.? Along with resolution of his hyperglycemia.? Lactic acid also resolved.? His advanced in his diet which she is able to tolerate well.? Unclear etiology for his symptoms however suspected to be related to underlying diabetic gastroparesis/GERD/gastritis.? He received few doses of metoclopramide along with Protonix.? His labs were unremarkable on 02/25/2023.? advanced further diet and he tolerated well. Abdomen examination is very benign with no swelling tenderness. unclear etiology if symptoms redevelop status to come back to the hospital for further treatment. Time Spent with Patient Time attestation: Total time spent providing and/or coordinating discharge services: 40 minutes Exam Narrative: GENERAL: The patient is well developed, not in acute distress HEENT: Nonicteric sclerae, PERRLA, EOMI. Oropharynx clear. Moist mucous membranes. Conjunctivae appear well perfused. CHEST: Chest wall is nontender. HEART: Regular rate and rhythm without murmur, rubs, or gallops LUNGS: Clear to auscultation bilaterally. no respiratory distress ABDOMEN: Soft, positive bowel sounds, non-tender, no organomegaly. SKIN: No rash, no excessive bruising, petechiae, or purpura. NEUROLOGIC: Cranial nerves II-XII intact, alert and oriented x 3, no gross motor deficits EXTREMITIES: no edema, cyanosis or clubbing DS: Data Data Completed and Pending Labs on day of discharge: Labs from last 24 hours 02/25/23 02/25/23 02/25/23 10:18 06:39 01:01 WBC 10.4 H RBC 3.94 L Hgb 12.8 L Hct 38.2 L MCV 97.0 MCH 32.5 MCHC 33.5 RDW 13.4 Plt Count 160 MPV 10.6 H Immature Gran % (Auto) 0.3 Neut % (Auto) 63.5 Lymph % (Auto) 26.1 [place] % (Auto) 9.6 H Eos % (Auto) 0.2 Baso % (Auto) 0.3 Lymph # (Auto) 2.73 [place] # (Auto) 1.0 H Eos # (Auto) 0.0 Baso # (Auto) 0.0 Abs Immat Gra
== END 2023-02-25 16:05 | disposition home or self-care (01) ==
LOC: ANHED 15:10 → ANH3MEDSUR 02-25 15:17
PROVIDERS: Student in an Organized Health Care Education/Training Program; Admitting Provider Internal Medicine; Emergency Provider Preventive Medicine Aerospace Medicine; PCP Family Medicine Sports Medicine; Visit Provider Internal Medicine
DX: N19 Unspecified kidney failure (principal); E87.1 Hypo-osmolality and hyponatremia; R10.84 Generalized abdominal pain; R11.2 Nausea with vomiting, unspecified; K86.81 Exocrine pancreatic insufficiency; E10.9 Type 1 diabetes mellitus without complications; Z79.4 Long term (current) use of insulin; Z87.891 Personal history of nicotine dependence; Z90.411 Acquired partial absence of pancreas; Z90.49 Acquired absence of other specified parts of digestive tract; F12.90 Cannabis use, unspecified, uncomplicated; Z96.41 Presence of insulin pump (external) (internal); Z95.4 Presence of other heart-valve replacement
CPT/HCPCS: 36415; 71275; 74174; 80053; 81001; 82948; 83605; 84484; 85025; 87040; 93005; 96361; 96372; 96374; 96375; 96376; 99285; A9270; G0378; J0780; J1650; J1885; J2270; J2405; J2765; J7030; Q9967

== ENCOUNTER 2023-10-16 09:28 | Emergency (ER) | payer MEDICARE, OTHER, SELFPAY ==
--- NOTE | ~2023-10-16 | CT_ITS ---
CT of the Abdomen and Pelvis: Indication: Abdominal pain Technique: 2.5 mm axial scans were obtained through the abdomen and pelvis following intravenous adm inistration of 100 cc of Omnipaque 350. Dose reduction technique was used on this scan by utilizing a utomated exposure control and iterative reconstruction technique. The dose-length product (DLP) was 3 49.34 mGy-cm. Findings: Scans through the lung bases are unremarkable. The liver, adrenals and kidneys are within normal limits. Cholecystectomy clips are present. Status p ost probable splenectomy. Pancreatic calcifications are consistent with chronic pancreatitis. There a re atherosclerotic calcifications of the aorta. No lymphadenopathy. No bowel obstruction or bowel wall thickening. There is no evidence to suggest acute appendicitis. Images through the pelvis were performed. Urinary bladder unremarkable. No pelvic mass. No ascites. Impression: No acute abnormality seen. Postoperative changes, as above. Chronic pancreatitis. Reviewed, dictated and finalized at [facility]. Impression: No acute abnormality seen. Postoperative changes, as above. Chronic pancreatitis.
[2023-10-16 09:35] VITALS: BP 148/71; PULSE 72; RESP 20; TEMP 36.3; O2SAT 100
[2023-10-16 09:47] LABS: Glucose Point of Care 307 mg/dl (65-105)
[2023-10-16 09:50] VITALS: BP 175/83; PULSE 52; RESP 20; O2SAT 100
[2023-10-16 10:03] LABS: Basophils Percent Auto 0.3 % (0.2-1.2); Eosinophils Percent Auto 0.3 % (0-4.4); Hematocrit 43.9 % (42.0-52.0); Hemoglobin 14.6 g/dL (14.0-18.0); Immature Granulocyte Absolute 0.05 K/mm3 (0.00-0.031); Immature Granulocyte Percent A 0.4 % (0-0.5); Lymphocytes Absolute Auto 1.63 K/mm3 (0.9-3.2); Lymphocytes Percent Auto 14.4 % (18.3-44.2); Mean Corpuscular HGB Conc 33.3 g/dl (32-36); Mean Corpuscular Hemoglobin 32.9 pg (26-34); Mean Corpuscular Volume 98.9 fl (80-100); Mean Platelet Volume 11.8 fl (7.4-10.4); Monocytes Absolute Auto 0.5 K/mm3 (0.1-0.6); Monocytes Percent Auto 4.3 % (2.6-8.5); Neutrophils Absolute Auto 9.1 K/mm3 (1.3-6.7); Neutrophils Percent Auto 80.3 % (45.5-73.1); Platelet Count Result 161 k/mm3 (150-375); Red Blood Count 4.44 M/mm3 (4.6-6.20); Red Cell Distribution Width 13.6 % (11.5-14.5); White Blood Count 11.3 K/mm3 (4.5-10.0)
--- NOTE | 2023-10-16 10:08 | ECG_ITS ---
Measurements Intervals [place] Rate: 50 P: 46 HI: 176 QRS: -8 QRSD: 90 T: -14 QT: 449 QTc: 413 Interpretive Statements SINUS BRADYCARDIA SEPTAL MYOCARDIAL INFARCTION , PROBABLY OLD [40+ ms Q WAVE IN V1/V2] NONSPECIFIC T-WAVE ABNORMALITY COMPARED TO ECG 02/24/2023 10:21:43 HEART RATE IS REDUCED, NONSPECIFIC T-WAVE ABNORMALITY NOTED Electronically Signed On 10-16-2023 13:12:44 CDT by Toño Willams M.D.
[2023-10-16] MEDS: MORPHINE SULFATE (*CRX) 4 MG/ML INJ IV PUSH (10:16)
[2023-10-16] MEDS: SODIUM CHLORIDE 0.9% IV 1,000 ML 999 ML IV CONT ×2 (10:16→11:00)
--- NOTE | 2023-10-16 10:19 | ED.ABDPAIN ---
HPI - Abdominal Pain General Chief Complaint: Abdominal Pain Stated Complaint: abdominal pain Time Seen by Provider: 10/16/23 09:38 Source: patient Mode of arrival: ambulatory Limitations: no limitations History of Present Illness HPI narrative: Patient is a 68-year-old male, with past medical history of partial pancreatectomy, type 1 diabetes, splenectomy, who presents the ED with report of abdominal pain, nausea. Patient reports he woke up this morning with pain in his upper abdomen, nausea, dry heaving. He has been unable to keep down any food or drink. States he feels sick overall. reports patient has had history of similar episodes over the the last few years and been diagnosed with several different GI issues. Patient denied having symptoms yesterday. Reports diarrhea this morning, which is not uncommon for him. Denies rectal bleeding or melena. Reports chills, denies known fevers. Patient underwent orthopedic surgery last by Dr. Sahni with [facility], pin removal from previous pelvic reconstructive surgery. Related Data Home Medications Medication Instructions Recorded Confirmed acetaminophen 500 mg tablet 500 mg PO Q6H PRN Pain (Scale 01/07/20 02/24/23 Score 4-6) atorvastatin 20 mg tablet 20 mg PO DAILY 02/24/23 02/24/23 ezetimibe 10 mg tablet 10 mg PO DAILY 02/24/23 02/24/23 insulin lispro 100 unit/mL 60 unit subcut DAILY 02/24/23 02/24/23 subcutaneous solution (Humalog U-100 Insulin) omega-3 acid ethyl esters 1 gram 1 g PO QID 02/24/23 02/24/23 capsule omeprazole 40 mg capsule,delayed 40 mg PO DAILY 02/24/23 02/24/23 release Allergies Allergy/AdvReac Type Severity Reaction Status Date / Time hydrocodone Allergy Intermediate Itching Verified 10/16/23 09:51 Cephalosporins Allergy Mild Unknown Verified 10/16/23 09:51 fenofibrate Allergy Muscle Verified 10/16/23 09:51 Spasms TAPE Allergy Mild Unknown Uncoded 10/16/23 09:51 Review of Systems Review of Systems: CONSTITUTIONAL: See HPI. CARDIOVASCULAR: Denies chest pain. RESPIRATORY: Denies dyspnea. GASTROINTESTINAL: See HPI. GENITOURINARY: Denies dysuria or hematuria. NEUROLOGIC: Denies headache, dizziness, numbness, or weakness. 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 They have 1 son. He is a retired power truck driver. They into a riding motorcycles and spending time with urge [place] Awan to relax. He drinks a couple of beers a night. He has a medical marijuana card. He used to smoke a pack of cigarettes per day but quit 2019. Code status: Full code Surrogate decision maker: Smoking packs per day: 1 Smoking cigarettes per day: 20.0 Years smoked: 50 Smoking pack-years: 50.00 Smoking status: Former smoker Alcohol intake: current Drinks per week: 14 Substance use: current Substance use type: marijuana Other substance usage details: medical marijuana card Lack of Transportation: No Lack of Food: Never True Current Housing: I Have Housing Concerned About Future Housing: No Difficulty Paying Gas/Electric Bills: No
[2023-10-16 10:25] LABS: Alanine Aminotransferase 33 U/L (6-50); Albumin Level 4.6 g/dL (3.5-5.1); Alkaline Phosphatase 100 U/L (38-126); Anion Gap 10 mmol/L (4-12); Aspartate Amino Transferase 51 U/L (17-59); Bilirubin,Total 1.4 mg/dL (0.2-1.3); Blood Urea Nitrogen 10 mg/dL (9-20); Calcium 9.8 mg/dL (8.4-10.2); Carbon Dioxide 27 mmol/L (22-30); Chloride 98 mmol/L (98-107); Estimated CRCL calculation 44 ml/min; Estimated Glomerular Filt Rate 50; Glucose 320 mg/dL (65-110); Potassium 3.8 mmol/L (3.4-5.0); Sodium 135 mmol/L (137-145)
[2023-10-16 10:29] LABS: Magnesium 1.6 mg/dL (1.6-2.3)
[2023-10-16 10:33] LABS: Phosphorus 1.7 mg/dL (2.5-4.5)
[2023-10-16 10:38] LABS: Lipase < 10 U/L (23-300)
[2023-10-16 10:40] LABS: Troponin I < 0.012 ng/mL (0.000-0.034)
[2023-10-16] MEDS: MAGNESIUM SULF 2 GM/WATER 50ML 2 GM/50 ML BAG IVPB (10:41)
[2023-10-16 10:47] LABS: Beta-Hydroxybutyrate/Acetoacetate 0.41 mmol/L (0.02-0.27)
[2023-10-16 10:48] LABS: Lactic Acid Reflex 2.5 mmol/L (0.7-2.0)
[2023-10-16 11:12] LABS: Influenza A QL RT-PCR Negative (Negative); Influenza B QL RT-PCR Negative (Negative); RSV RNA, RT-PCR Negative (Negative); SARS-CoV-2 RNA PCR Negative (Negative)
[2023-10-16 11:16] LABS: Appearance Urine Clear (Clear); Bilirubin Urine Negative (Negative); Blood Urine Negative (Negative); Color Urine Yellow (Yellow); Glucose Urine UA 2+ mg/dL (Negative); Ketones Urine 1+ mg/dL (Negative); Leukocyte Esterase Ur Negative LEU/UL (Negative); Nitrate Urine Negative (Negative); Protein Urine Negative (Negative); Specific Grav Ur 1.011 (1.001-1.035); Urobilinogen Urine 0.2 mg/dL (<2.0)
[2023-10-16 11:18] LABS: Add Urine Microscopic? YES
[2023-10-16] MEDS: ONDANSETRON INJ 4 MG/2 ML VIAL IV PUSH (11:50)
[2023-10-16] MEDS: PANTOPRAZOLE SODIUM IV 40 MG VIAL IV PUSH (11:50)
[2023-10-16] MEDS: METOCLOPRAMIDE HCL INJ 10 MG/2 ML VIAL IV PUSH (12:06)
[2023-10-16] MEDS: HYDROmorphone HCL INJ (*CRX) 1 MG/ML SYR 0.5 MG IV PUSH (12:06)
[2023-10-16] MEDS: diphenhydrAMINE HCl INJ 50 MG/ML VIAL 25 MG IV PUSH (12:07)
[2023-10-16 13:34] LABS: Reflex Lactic Acid Yes or No Add Lactic
[2023-10-16 14:03] LABS: Lactic Acid 2.1 mmol/L (0.7-2.0)
== END 2023-10-16 14:22 | disposition home or self-care (01) ==
PROVIDERS: Family Medicine; Emergency Provider Physician Assistant; PCP Family Medicine
DX: R11.2 Nausea with vomiting, unspecified (principal); K86.1 Other chronic pancreatitis; R10.10 Upper abdominal pain, unspecified; R00.1 Bradycardia, unspecified; Z20.822 Contact with and (suspected) exposure to COVID-19; E10.9 Type 1 diabetes mellitus without complications; Z79.4 Long term (current) use of insulin
CPT/HCPCS: 36415; 74177; 80053; 81001; 82010; 82948; 83605; 83690; 83735; 84100; 84484; 85025; 87637; 93005; 96361; 96365; 96375; 99284; C9113; J1170; J1200; J2270; J2405; J2765; J3475; J7030; Q9967

== ENCOUNTER 2024-05-27 09:22 | Emergency (ER) | payer MEDICARE, OTHER, SELFPAY ==
--- NOTE | ~2024-05-27 | CT_ITS ---
EXAMINATION: CT abdomen pelvis w con DATE: 05/27/2024 10:31 INDICATION: Upper abdominal pain, nausea and vomiting TECHNIQUE: Computed tomography (CT) of the abdomen and pelvis was performed with 100 mL Omnipaque-350 intravenous contrast. Automated exposure control and iterative reconstruction technique were employe d. The dose-length product was 399.97 mGy-cm. COMPARISON: 08/17/2023 FINDINGS: Mild emphysema. Mild bronchiectatic change and dependent atelectasis in the bilateral lower lobes. Ad ditional mild discoid atelectasis at the lingula. Heart size is normal. No pericardial effusion. Medi an sternotomy and aortic valve repair better appreciated on the assistant pressman topogram. Again seen is mild intra and extrahepatic biliary ductal dilation likely related to prior cholecystec tiffanie with surgical clips the gallbladder fossa. 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 Again seen are coarse calcifications at the head of the pancreas likely seq uela of chronic pancreatitis. There is prominent atrophy of the body of the pancreas with no evident pancreatic tissue seen distal to several densities at the junction of the body and tail consistent wi th provided history of prior partial pancreatectomy. Bilateral adrenal glands and kidneys are normal. Normal appendix. No bowel obstruction. Bladder is normal. Chronic pelvic fractures with plate and screw fixation along the anterior left iliac spine. Residual lucent screw tracks related to prior fixation extending across the bilateral superior pubic rami and across the sacrum and bilateral sacroiliac joints. Embolization coils in the region of the left sciat ic notch. No free intraperitoneal gas or fluid. No pathologically enlarged abdominal or pelvic lympha denopathy. There is scattered calcified atherosclerosis of the aorta and many of the other arteries. No evident hemodynamic significant stenosis, aneurysm or dissection. IMPRESSION: 1. No acute intra-abdominal/pelvic process. 2. Stable appearance of multiple postoperative changes in the abdomen and pelvis including cholecyste ctomy, splenectomy, partial pancreatectomy, prior fixation of chronic pelvic fractures and embolizati on coiling of a vessel at the left sciatic notch. Reviewed, dictated and finalized at location [facility] IMPRESSION: 1. No acute intra-abdominal/pelvic process. 2. Stable appearance of multiple postoperative changes in the abdomen and pelvi s including cholecystectomy, splenectomy, partial pancreatectomy, prior fixatio n of chronic pelvic fractures and embolization coiling of a vessel at the left sciatic notch.
[2024-05-27 09:30] VITALS: BP 173/90; PULSE 62; RESP 16; O2SAT 99
--- NOTE | 2024-05-27 09:35 | ED.ABDPAIN ---
HPI - Abdominal Pain General Chief Complaint: Abdominal Pain Stated Complaint: abd pain Time Seen by Provider: 05/27/24 09:24 Source: patient Mode of arrival: ambulatory Limitations: no limitations History of Present Illness HPI narrative: Patient is a 69-year-old male, with past medical history of partial pancreatectomy, type 1 diabetes, splenectomy, who presents to the ED with c/o upper abdominal pain. Patient reports pain began this morning and has been intermittent with episodes of cramping pain. He has not taken anything for pain. He reports nausea with dry heaving. Denies diarrhea or constipation. Was able to have a small bowel movement this morning. Has had history of similar abdominal pain /symptoms in the past which he states has been attributed to several different GI issues. Per records, I saw patient in October of this year at which time his symptoms were thought to be attributed to gastroenteritis versus gastritis versus cannabinoid hyperemesis syndrome. Denies fevers. Related Data Home Medications Medication Instructions Recorded Confirmed acetaminophen 500 mg tablet 500 mg PO Q6H PRN Pain (Scale 01/07/20 02/24/23 Score 4-6) atorvastatin 20 mg tablet 20 mg PO DAILY 02/24/23 02/24/23 ezetimibe 10 mg tablet 10 mg PO DAILY 02/24/23 02/24/23 insulin lispro 100 unit/mL 60 unit subcut DAILY 02/24/23 02/24/23 subcutaneous solution (Humalog U-100 Insulin) omega-3 acid ethyl esters 1 gram 1 g PO QID 02/24/23 02/24/23 capsule omeprazole 40 mg capsule,delayed 40 mg PO DAILY 02/24/23 02/24/23 release Allergies Allergy/AdvReac Type Severity Reaction Status Date / Time hydrocodone Allergy Intermediate Itching Verified 10/16/23 09:51 adhesive tape Allergy Mild Unknown Verified 05/27/24 09:25 Cephalosporins Allergy Mild Unknown Verified 10/16/23 09:51 fenofibrate Allergy Muscle Verified 10/16/23 09:51 Spasms Review of Systems Review of Systems: All systems reviewed & are unremarkable except as noted in HPI. 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 They have 1 son. 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 They into a riding motorcycles and spending time with urge [place] Awan to relax. He drinks a couple of beers a night. He has a medical marijuana card. He used to smoke a pack of cigarettes per day but quit 2018. Code status: Full code Surrogate decision maker: Smoking packs per day: 1 Smoking cigarettes per day: 20.0 Years smoked: 50 Smoking pack-years: 50.00 Smoking status: Former smoker Alcohol intake: current Drinks per week: 14 Substance use: current Substance use type: marijuana Other substance usage details: medical marijuana card Lack of Transportation: No Lack of Food: Never True Current Housing: I Have Housing Concerned About Future Housing: No Difficulty Paying Gas/Electric Bills: No Difficulty Paying for Meds: No Currently Unemployed: No Education: Decline to Answer Difficulty w/ Childcare or Family Care: No Gender identity (if verbalized by the patient): Male Spiritual care concerns: No Exam Narrative: GENERAL: Elderly, well-nourished, non-toxic, in mild acute distress d/t pain. intermittently moaning out in pain. HEAD: Normocephalic, atraumatic. RESPIRATORY: Airway patent, respirations nonlabored. Clear to auscultation bilaterally, no rales, rhonchi, wheezing. CARDIOVASCULAR: Regular rate and rhythm without murmurs, rubs, or gallops. ABDOMINAL: Soft, Diffuse tenderness in upper abdomen, nondistended. Normoactive BS. MUSCULOSKELETAL: Moves all extremities. No gross deformities. SKIN: Warm, dry, normal color. NEURO: A&O X3. Speech clear. PSYCHIATRIC: Appropriate mood and affect. Normal interaction. Course Vital Signs Vital signs: Vital Signs Pulse Rate 62 05/27/24 09:30 Respiratory Rate 16 05/27/24 09:30 Blood Pressure 173/90 H 05/27/24 09:30 Pulse Oximetry 99 05/27/24 09:30 Oxygen Delivery Room Air 05/27/24 09:30 Temperature 97.6 F 05/27/24 11:40 Pulse Rate 51 L 05/27/24 12:17 Respiratory Rate 20 05/27/24 12:17 Blood Pressure 154/71 H 05/27/24 12:17 Pulse Oximetry 100 05/27/24 12:17 Oxygen Delivery Room Air 05/27/24 09:30 MDM - Abdominal Pain MDM Narrative Medical decision making narrative: patient presented with upper abdominal pain, nausea with dry heaving onset this morning. History of similar episodes. Vital signs are stable upon arrival. Patient intermittently moaning out in pain. Fluids, nausea medicine, Protonix, Dilaudid ordered. CBC with white blood cell count of 10.5. Stable H&H. CMP with hyperglycemia at 281. Normal bicarb. No anion gap. No evidence of DKA. CKD noted, consistent with previous records. Minimal lactic acidosis of 2.2. Fluids ongoing. Suspect r/t dehydration, patient otherwise not meeting any criteria for sepsis/sirs. Normal LFTs. Lipase within normal range. UA w/o evidence of infection. CT scan of abdomen /pelvis was obtained and unremarkable. Showing stable postsurgical changes without complication, no other significant intra-abdominal findings. Patient was updated on lab and imaging findings. He is feeling better with supportive therapy. He was able to tolerate p.o. intake. Feel he is safe for discharge home with close outpatient follow-up. Discussed possibility of gastritis versus PUD vs cyclical vomiting/ cannabinoid hyperemesis syndrome. Patient is a regular marijuana smoker and has a medical marijuana card. Discussed these possibilities with patient and at bedside. Patient is on omeprazole at home. Will increase to pantoprazole, prescription given. Discussed other lifestyle/dietary modifications. Recommended to avoid marijuana use. recommended close follow-up with PCP for further evaluation. Given strict return precautions. Patient and family agrees w/ pain. Discharged in stable condition. Medical Records Attestation: I reviewed the patient's medical records. Lab Data Attestation: I reviewed the patient's lab results. 05/27/24 09:41 05/27/24 09:41 Labs: Lab Results 05/27/24 05/27/24 Range/Units 09:41 10:50 WBC 10.5 H (4.5-10.0) K/mm3 RBC 4.47 L (4.6-6.20) M/mm3 Hgb 14.2 (14.0-18.0) g/dL Hct 42.9 (42.0-52.0) % MCV 96.0 (80-100) fl MCH 31.8 (26-34) pg MCHC 33.1 (32-36) g/dl RDW 15.5 H (11.5-14.5) % Plt Count 161 (150-375) k/mm3 MPV 12.0 H (7.4-10.4) fl Immature Gran % (Auto) 0.2 (0-0.5) % Neut % (Auto) 74.4 H (45.5-73.1) % Lymph % (Auto) 17.9 L (18.3-44.2) % [place] % (Auto) 6.2 (2.6-8.5) % Eos % (Auto) 0.7 (0-4.4) % Baso % (Auto) 0.6 (0.2-1.2) % Lymph # (Auto) 1.89 (0.9-3.2) K/mm3 [place] # (Auto) 0.7 H (0.1-0.6) K/mm3 Eos # (Auto) 0.1 (0-0.3) K/mm3 Baso # (Auto) 0.1 (0.0-0.1) K/mm3 Abs Immat Gran (auto) 0.02 (0.00-0.031) K/mm3 Absolute Neuts (auto) 7.9 H (1.3-6.7) K/mm3 Absolute Nucleated RBC 0.000 (0.0-0.012) K/mm3 Nucleated RBC % 0.0 (0.0-0.2) % Sodium 134 L (137-145) mmol/L Potassium 4.0 (3.4-5.0) mmol/L Chloride 101 (98-107) mmol/L Carbon Dioxide 23 (22-30) mmol/L Anion Gap 10 (4-12) mmol/L BUN 12 (9-20) mg/dL Creatinine 1.40 H (0.7-1.3) mg/dL Estim Creat Clear Calc 45 ml/min Estimated GFR 50 L (59 - ) Glucose 281 H (65-110) mg/dL Lactic Acid 2.2 H (0.7-2.0) mmol/L Calcium 8.9 (8.4-10.2) mg/dL Total Bilirubin 0.8 (0.2-1.3) mg/dL AST 32 (17-59) U/L ALT 17 (6-50) U/L Alkaline Phosphatase 86 (38-126) U/L Total Protein 8.0 (6.3-8.2) g/dL Albumin 4.2 (3.5-5.1) g/dL Lipase < 10 L (23-300) U/L Urine Color Yellow (Yellow) Urine Appearance Clear (Clear) Urine pH 6.5 (5.0-9.0) Ur Specific [place] 1.015 (1.001-1.035) Urine Protein Negative (Negative) mg/dL Urine Glucose (UA) 1+ H (Negative) mg/dL Urine Ketones Negative (Negative) mg/dL Ur Blood (Man) Negative (Negative) Urine Nitrate Negative (Negative) Urine Bilirubin Negative (Negative) Urine Urobilinogen 0.2 (<2.0) mg/dL Leukocyte Esterase Rfl Negative (Negative) DON/UL Imaging Data Attestation: I personally reviewed and interpreted this imaging study as follows: Radiologist's impression: ITS Impressions Abdomen/Pelvis CT 05/27/24 10:34 IMPRESSION: 1. No acute intra-abdominal/pelvic process. 2. Stable appearance of multiple postoperative changes in the abdomen and pelvis including cholecystectomy, splenectomy, partial pancreatectomy, prior fixation of chronic pelvic fractures and embolization coiling of a vessel at the left sciatic notch. Discharge Plan Discharge Clinical Impression: Intermittent upper abdominal pain Nausea and vomiting Qualifiers: Vomiting type: unspecified Qualified Code(s): R11.2 - Nausea with vomiting, unspecified Patient Disposition: Home, Self-Care Condition: Stable Instructions: Antibiotic Form, Gastritis (ED), Diet for Stomach Ulcers and Gastritis (ED), GERD (Gastroesophageal Reflux Disease) (ED) Additional Instructions: Stay well hydrated. Take pantoprazole daily for acid reflux /acid suppression (instead of your previously prescribed omeprazole). Utilize Zofran or Reglan as needed for further nausea. Utilize Tylenol and/or Bentyl as needed for abdominal discomfort. Recommend electrolyte rich fluids, Gatorade, pedialyte, body armour. Recommend clear liquids or bland diet until symptoms improve, such as bananas, rice, applesauce, toast, or crackers. Avoid further marijuana use as this could be contributing to pain/vomiting. Follow up with your primary care doctor for further evaluation. Return to the ED if you experience worsening or severe symptoms, unable to keep down food or drink, severe pain, fevers, rectal bleeding, vomiting blood, or any other symptoms of concern. Prescriptions: New pantoprazole [Protonix] 20 mg tablet,delayed release (DR/EC) 20 mg PO HS 28 Days Qty: 28 0RF metoclopramide HCl 5 mg tablet 5 mg PO Q6H PRN (Reason: nausea and vomiting) Qty: 15 0RF dicyclomine 20 mg tablet 20 mg PO TID PRN (Reason: Abdominal Discomfort) Qty: 10 0RF No Action acetaminophen 500 mg Tablet 500 mg PO Q6H PRN (Reason: Pain (Scale Score 4-6)) atorvastatin 20 mg tablet 20 mg PO DAILY omeprazole 40 mg capsule,delayed release(DR/EC) 40 mg PO DAILY insulin lispro [Humalog U-100 Insulin] 100 unit/mL solution 60 unit subcut DAILY ezetimibe 10 mg tablet 10 mg PO DAILY omega-3 acid ethyl esters 1 gram capsule 1 g PO QID ondansetron 4 mg tablet,disintegrating 4 mg PO Q8H PRN (Reason: nausea and vomiting) Qty: 15 0RF Follow-up/Referrals: Becca,Navdeep Moreland MD [Primary Care Provider] - Time of Disposition: 11:33
[2024-05-27] MEDS: SODIUM CHLORIDE 0.9% IV 1,000 ML 999 ML IV CONT (09:44)
[2024-05-27] MEDS: ONDANSETRON INJ 4 MG/2 ML VIAL IV PUSH (09:44)
[2024-05-27 09:46] LABS: Basophils Absolute Auto 0.1 K/mm3 (0.0-0.1); Basophils Percent Auto 0.6 % (0.2-1.2); Eosinophils Absolute Auto 0.1 K/mm3 (0-0.3); Eosinophils Percent Auto 0.7 % (0-4.4); Hematocrit 42.9 % (42.0-52.0); Hemoglobin 14.2 g/dL (14.0-18.0); Immature Granulocyte Absolute 0.02 K/mm3 (0.00-0.031); Immature Granulocyte Percent A 0.2 % (0-0.5); Lymphocytes Absolute Auto 1.89 K/mm3 (0.9-3.2); Lymphocytes Percent Auto 17.9 % (18.3-44.2); Mean Corpuscular HGB Conc 33.1 g/dl (32-36); Mean Corpuscular Hemoglobin 31.8 pg (26-34); Monocytes Absolute Auto 0.7 K/mm3 (0.1-0.6); Monocytes Percent Auto 6.2 % (2.6-8.5); Neutrophils Absolute Auto 7.9 K/mm3 (1.3-6.7); Neutrophils Percent Auto 74.4 % (45.5-73.1); Platelet Count Result 161 k/mm3 (150-375); Red Blood Count 4.47 M/mm3 (4.6-6.20); Red Cell Distribution Width 15.5 % (11.5-14.5); White Blood Count 10.5 K/mm3 (4.5-10.0)
[2024-05-27] MEDS: PANTOPRAZOLE SODIUM IV 40 MG VIAL IV PUSH (09:48)
[2024-05-27] MEDS: HYDROmorphone HCL INJ (*CRX) 1 MG/ML SYR 0.5 MG IV PUSH (09:48)
--- NOTE | 2024-05-27 09:56 | PC.NURSE ---
Pt provided with urinal for urine sample. Informed to press the call light when he obtains the sample. Pt verbalizes understanding.
[2024-05-27 09:57] LABS: Lactic Acid Reflex 2.2 mmol/L (0.7-2.0)
[2024-05-27 09:58] LABS: Alanine Aminotransferase 17 U/L (6-50); Albumin Level 4.2 g/dL (3.5-5.1); Alkaline Phosphatase 86 U/L (38-126); Anion Gap 10 mmol/L (4-12); Aspartate Amino Transferase 32 U/L (17-59); Bilirubin,Total 0.8 mg/dL (0.2-1.3); Blood Urea Nitrogen 12 mg/dL (9-20); Calcium 8.9 mg/dL (8.4-10.2); Carbon Dioxide 23 mmol/L (22-30); Chloride 101 mmol/L (98-107); Estimated CRCL calculation 45 ml/min; Estimated Glomerular Filt Rate 50; Glucose 281 mg/dL (65-110); Sodium 134 mmol/L (137-145)
[2024-05-27 10:06] LABS: Lipase < 10 U/L (23-300)
[2024-05-27 10:56] LABS: Add Urine Microscopic? NO; Appearance Urine Clear (Clear); Bilirubin Urine Negative (Negative); Blood Urine Negative (Negative); Color Urine Yellow (Yellow); Glucose Urine UA 1+ mg/dL (Negative); Ketones Urine Negative (Negative); Leukocyte Esterase Ur Negative LEU/UL (Negative); Nitrate Urine Negative (Negative); Protein Urine Negative (Negative); Specific Grav Ur 1.015 (1.001-1.035); Urobilinogen Urine 0.2 mg/dL (<2.0); pH Urine 6.5 (5.0-9.0)
[2024-05-27 11:05] VITALS: BP 164/85; PULSE 66; RESP 16; O2SAT 100
[2024-05-27] MEDS: KETOROLAC 30 MG/ML VIAL (*BKC) IV PUSH (11:34)
[2024-05-27 11:40] VITALS: TEMP 36.4
[2024-05-27 12:17] VITALS: BP 154/71; PULSE 51; RESP 20; O2SAT 100
[2024-05-27 12:44] LABS: Reflex Lactic Acid Yes or No Add Lactic
== END 2024-05-27 12:16 | disposition home or self-care (01) ==
PROVIDERS: Emergency Provider Physician Assistant; PCP Family Medicine
DX: R10.10 Upper abdominal pain, unspecified (principal); R11.2 Nausea with vomiting, unspecified; E10.9 Type 1 diabetes mellitus without complications; E78.5 Hyperlipidemia, unspecified; K86.81 Exocrine pancreatic insufficiency; Z95.2 Presence of prosthetic heart valve; Z87.891 Personal history of nicotine dependence; Z90.411 Acquired partial absence of pancreas; Z90.81 Acquired absence of spleen; Z79.4 Long term (current) use of insulin; Z79.899 Other long term (current) drug therapy
CPT/HCPCS: 36415; 74177; 80053; 81003; 83605; 83690; 85025; 96361; 96374; 96375; 99284; J1171; J1885; J2405; J2470; J7030; Q9967